=== PATIENT | male | born 1955 | race Caucasian/White ===

== ENCOUNTER → 2016-06-26 | Outpatient (CLI) | payer OTHER ==
[~2016-06-26] MED LIST: APAP500 PO; BISCOLAX10 MG RC; COLACE100 MG PO; COUMADIN 5 MG TA5 M1 PO; COUMADIN7.5 MG PO; ENOXAPARIN40 MG/0.1 SUBQ; FLOMAX0.4 MG PO; NEURONTIN 300300 M1 PO; NORCO 5-325 TA1 EACH PO; PIPERACIL-TAZO4.5 G1 IV; UNICOMPLEX M TA1 TA1 PO; VITAMINC500 PO; ZINC CHELATE50 MG PO
== END ==
LOC: HYPER 06-05 07:10
DX: I87.333 Chronic venous hypertension (idiopathic) with ulcer and inflammation of bilateral lower extremity (principal); L97.322 Non-pressure chronic ulcer of left ankle with fat layer exposed; L97.312 Non-pressure chronic ulcer of right ankle with fat layer exposed; I87.2 Venous insufficiency (chronic) (peripheral); E66.01 Morbid (severe) obesity due to excess calories; F17.210 Nicotine dependence, cigarettes, uncomplicated; Z85.46 Personal history of malignant neoplasm of prostate; Z72.89 Other problems related to lifestyle

== ENCOUNTER → 2016-08-21 | Outpatient (CLI) | payer OTHER | LOC: HYPER 07:06 | DX: I87.333 Chronic venous hypertension (idiopathic) with ulcer and inflammation of bilateral lower extremity (principal); L97.822 Non-pressure chronic ulcer of other part of left lower leg with fat layer exposed; E66.01 Morbid (severe) obesity due to excess calories; L97.811 Non-pressure chronic ulcer of other part of right lower leg limited to breakdown of skin; F17.210 Nicotine dependence, cigarettes, uncomplicated; Z85.46 Personal history of malignant neoplasm of prostate; Z72.89 Other problems related to lifestyle ==

== ENCOUNTER → 2016-09-12 | Outpatient (CLI) | payer OTHER | LOC: HYPER 07:10 | DX: I87.333 Chronic venous hypertension (idiopathic) with ulcer and inflammation of bilateral lower extremity (principal); L97.822 Non-pressure chronic ulcer of other part of left lower leg with fat layer exposed; L97.312 Non-pressure chronic ulcer of right ankle with fat layer exposed; E66.01 Morbid (severe) obesity due to excess calories; F17.210 Nicotine dependence, cigarettes, uncomplicated; Z85.46 Personal history of malignant neoplasm of prostate; Z72.89 Other problems related to lifestyle ==

== ENCOUNTER → 2016-09-27 | Outpatient (CLI) | payer OTHER | LOC: HYPER 07:05 | DX: I87.333 Chronic venous hypertension (idiopathic) with ulcer and inflammation of bilateral lower extremity (principal); L97.822 Non-pressure chronic ulcer of other part of left lower leg with fat layer exposed; L97.812 Non-pressure chronic ulcer of other part of right lower leg with fat layer exposed; R60.9 Edema, unspecified; E66.01 Morbid (severe) obesity due to excess calories; F17.210 Nicotine dependence, cigarettes, uncomplicated; Z85.46 Personal history of malignant neoplasm of prostate; Z72.89 Other problems related to lifestyle ==

== ENCOUNTER → 2016-10-25 | Outpatient (CLI) | payer OTHER | LOC: HYPER 07:04 | DX: I87.333 Chronic venous hypertension (idiopathic) with ulcer and inflammation of bilateral lower extremity (principal); L97.822 Non-pressure chronic ulcer of other part of left lower leg with fat layer exposed; L97.812 Non-pressure chronic ulcer of other part of right lower leg with fat layer exposed; R60.9 Edema, unspecified; E66.01 Morbid (severe) obesity due to excess calories; F17.210 Nicotine dependence, cigarettes, uncomplicated; Z85.46 Personal history of malignant neoplasm of prostate; Z72.89 Other problems related to lifestyle; Z68.41 Body mass index [BMI] 40.0-44.9, adult ==

== ENCOUNTER → 2016-11-22 | Outpatient (CLI) | payer OTHER | LOC: HYPER 07:06 | DX: I87.333 Chronic venous hypertension (idiopathic) with ulcer and inflammation of bilateral lower extremity (principal); L97.822 Non-pressure chronic ulcer of other part of left lower leg with fat layer exposed; L97.812 Non-pressure chronic ulcer of other part of right lower leg with fat layer exposed; R60.9 Edema, unspecified; E66.01 Morbid (severe) obesity due to excess calories; F17.210 Nicotine dependence, cigarettes, uncomplicated; Z85.46 Personal history of malignant neoplasm of prostate; Z72.89 Other problems related to lifestyle ==

== ENCOUNTER → 2016-11-29 | Outpatient (CLI) | payer OTHER | LOC: HYPER 07:15 | DX: I87.333 Chronic venous hypertension (idiopathic) with ulcer and inflammation of bilateral lower extremity (principal); L97.822 Non-pressure chronic ulcer of other part of left lower leg with fat layer exposed; L97.812 Non-pressure chronic ulcer of other part of right lower leg with fat layer exposed; E66.01 Morbid (severe) obesity due to excess calories; Z85.46 Personal history of malignant neoplasm of prostate; F17.210 Nicotine dependence, cigarettes, uncomplicated ==

== ENCOUNTER → 2016-12-06 | Outpatient (CLI) | payer OTHER | LOC: HYPER 07:06 | DX: I87.333 Chronic venous hypertension (idiopathic) with ulcer and inflammation of bilateral lower extremity (principal); L97.812 Non-pressure chronic ulcer of other part of right lower leg with fat layer exposed; L97.822 Non-pressure chronic ulcer of other part of left lower leg with fat layer exposed; E66.01 Morbid (severe) obesity due to excess calories; Z68.41 Body mass index [BMI] 40.0-44.9, adult; Z85.46 Personal history of malignant neoplasm of prostate; F17.210 Nicotine dependence, cigarettes, uncomplicated ==

== ENCOUNTER → 2016-12-13 | Outpatient (CLI) | payer OTHER | LOC: HYPER 07:12 | DX: I87.333 Chronic venous hypertension (idiopathic) with ulcer and inflammation of bilateral lower extremity (principal); L97.822 Non-pressure chronic ulcer of other part of left lower leg with fat layer exposed; L97.812 Non-pressure chronic ulcer of other part of right lower leg with fat layer exposed; E66.01 Morbid (severe) obesity due to excess calories; Z68.41 Body mass index [BMI] 40.0-44.9, adult; Z85.46 Personal history of malignant neoplasm of prostate; F17.210 Nicotine dependence, cigarettes, uncomplicated ==

== ENCOUNTER → 2016-12-20 | Outpatient (CLI) | payer OTHER | LOC: HYPER 07:01 | DX: I87.333 Chronic venous hypertension (idiopathic) with ulcer and inflammation of bilateral lower extremity (principal); L97.822 Non-pressure chronic ulcer of other part of left lower leg with fat layer exposed; L97.812 Non-pressure chronic ulcer of other part of right lower leg with fat layer exposed; E66.01 Morbid (severe) obesity due to excess calories; I87.2 Venous insufficiency (chronic) (peripheral); F17.210 Nicotine dependence, cigarettes, uncomplicated; Z68.41 Body mass index [BMI] 40.0-44.9, adult; Z85.46 Personal history of malignant neoplasm of prostate; Z72.89 Other problems related to lifestyle ==

== ENCOUNTER → 2017-01-10 | Outpatient (CLI) | payer OTHER | LOC: HYPER 07:01 | DX: I87.333 Chronic venous hypertension (idiopathic) with ulcer and inflammation of bilateral lower extremity (principal); L97.812 Non-pressure chronic ulcer of other part of right lower leg with fat layer exposed; L97.822 Non-pressure chronic ulcer of other part of left lower leg with fat layer exposed; R60.9 Edema, unspecified; E66.01 Morbid (severe) obesity due to excess calories; F17.210 Nicotine dependence, cigarettes, uncomplicated; Z85.46 Personal history of malignant neoplasm of prostate; Z72.89 Other problems related to lifestyle ==

== ENCOUNTER → 2017-01-31 | Outpatient (CLI) | payer OTHER | LOC: HYPER 07:01 | DX: I87.333 Chronic venous hypertension (idiopathic) with ulcer and inflammation of bilateral lower extremity (principal); L97.822 Non-pressure chronic ulcer of other part of left lower leg with fat layer exposed; L97.821 Non-pressure chronic ulcer of other part of left lower leg limited to breakdown of skin; L97.812 Non-pressure chronic ulcer of other part of right lower leg with fat layer exposed; E66.01 Morbid (severe) obesity due to excess calories; R60.9 Edema, unspecified; Z85.46 Personal history of malignant neoplasm of prostate; F17.210 Nicotine dependence, cigarettes, uncomplicated; Z72.89 Other problems related to lifestyle ==

== ENCOUNTER → 2017-02-12 | Outpatient (CLI) | payer OTHER | LOC: HYPER 07:11 | DX: I87.333 Chronic venous hypertension (idiopathic) with ulcer and inflammation of bilateral lower extremity (principal); L97.811 Non-pressure chronic ulcer of other part of right lower leg limited to breakdown of skin; L97.812 Non-pressure chronic ulcer of other part of right lower leg with fat layer exposed; E66.01 Morbid (severe) obesity due to excess calories; Z68.41 Body mass index [BMI] 40.0-44.9, adult; Z85.46 Personal history of malignant neoplasm of prostate ==

== ENCOUNTER → 2017-02-26 | Outpatient (CLI) | payer OTHER | LOC: HYPER 07:47 | DX: I87.333 Chronic venous hypertension (idiopathic) with ulcer and inflammation of bilateral lower extremity (principal); L97.812 Non-pressure chronic ulcer of other part of right lower leg with fat layer exposed; L97.822 Non-pressure chronic ulcer of other part of left lower leg with fat layer exposed; E66.01 Morbid (severe) obesity due to excess calories; R60.9 Edema, unspecified; Z85.46 Personal history of malignant neoplasm of prostate; F17.210 Nicotine dependence, cigarettes, uncomplicated; Z72.89 Other problems related to lifestyle ==

== ENCOUNTER → 2017-03-12 | Outpatient (CLI) | payer OTHER | LOC: HYPER 07:04 | DX: I87.333 Chronic venous hypertension (idiopathic) with ulcer and inflammation of bilateral lower extremity (principal); L97.822 Non-pressure chronic ulcer of other part of left lower leg with fat layer exposed; L97.812 Non-pressure chronic ulcer of other part of right lower leg with fat layer exposed; L97.512 Non-pressure chronic ulcer of other part of right foot with fat layer exposed; E66.01 Morbid (severe) obesity due to excess calories; R60.9 Edema, unspecified; F17.210 Nicotine dependence, cigarettes, uncomplicated; Z72.89 Other problems related to lifestyle; Z85.46 Personal history of malignant neoplasm of prostate ==

== ENCOUNTER → 2017-03-26 | Outpatient (CLI) | payer OTHER | LOC: HYPER 07:01 | DX: I87.333 Chronic venous hypertension (idiopathic) with ulcer and inflammation of bilateral lower extremity (principal); L97.822 Non-pressure chronic ulcer of other part of left lower leg with fat layer exposed; L97.812 Non-pressure chronic ulcer of other part of right lower leg with fat layer exposed; E66.01 Morbid (severe) obesity due to excess calories; R60.9 Edema, unspecified; Z85.46 Personal history of malignant neoplasm of prostate; F17.210 Nicotine dependence, cigarettes, uncomplicated ==

== ENCOUNTER → 2017-04-24 | Outpatient (CLI) | payer OTHER | LOC: HYPER 08:00 | DX: I87.333 Chronic venous hypertension (idiopathic) with ulcer and inflammation of bilateral lower extremity (principal); L97.812 Non-pressure chronic ulcer of other part of right lower leg with fat layer exposed; L97.822 Non-pressure chronic ulcer of other part of left lower leg with fat layer exposed; L97.512 Non-pressure chronic ulcer of other part of right foot with fat layer exposed; E66.01 Morbid (severe) obesity due to excess calories; Z68.41 Body mass index [BMI] 40.0-44.9, adult; R60.9 Edema, unspecified; Z85.46 Personal history of malignant neoplasm of prostate; F17.210 Nicotine dependence, cigarettes, uncomplicated; Z72.89 Other problems related to lifestyle ==

== ENCOUNTER → 2017-05-16 | Outpatient (CLI) | payer OTHER | LOC: HYPER 07:58 | DX: I87.333 Chronic venous hypertension (idiopathic) with ulcer and inflammation of bilateral lower extremity (principal); L97.822 Non-pressure chronic ulcer of other part of left lower leg with fat layer exposed; L97.812 Non-pressure chronic ulcer of other part of right lower leg with fat layer exposed; E66.01 Morbid (severe) obesity due to excess calories; Z68.41 Body mass index [BMI] 40.0-44.9, adult; Z85.46 Personal history of malignant neoplasm of prostate; F17.210 Nicotine dependence, cigarettes, uncomplicated; L97.512 Non-pressure chronic ulcer of other part of right foot with fat layer exposed; L97.521 Non-pressure chronic ulcer of other part of left foot limited to breakdown of skin ==

== ENCOUNTER → 2017-05-30 | Outpatient (CLI) | payer OTHER | LOC: HYPER 06:48 | DX: I87.333 Chronic venous hypertension (idiopathic) with ulcer and inflammation of bilateral lower extremity (principal); L97.812 Non-pressure chronic ulcer of other part of right lower leg with fat layer exposed; L97.822 Non-pressure chronic ulcer of other part of left lower leg with fat layer exposed; E66.01 Morbid (severe) obesity due to excess calories; Z68.41 Body mass index [BMI] 40.0-44.9, adult; Z85.46 Personal history of malignant neoplasm of prostate; F17.210 Nicotine dependence, cigarettes, uncomplicated ==

== ENCOUNTER → 2017-06-21 | Outpatient (CLI) | payer OTHER | LOC: HYPER 06:48 | DX: I87.333 Chronic venous hypertension (idiopathic) with ulcer and inflammation of bilateral lower extremity (principal); L97.812 Non-pressure chronic ulcer of other part of right lower leg with fat layer exposed; L97.822 Non-pressure chronic ulcer of other part of left lower leg with fat layer exposed; E66.01 Morbid (severe) obesity due to excess calories; Z68.41 Body mass index [BMI] 40.0-44.9, adult; R60.9 Edema, unspecified; Z85.46 Personal history of malignant neoplasm of prostate; F17.210 Nicotine dependence, cigarettes, uncomplicated; Z72.89 Other problems related to lifestyle ==

== ENCOUNTER → 2017-07-05 | Outpatient (CLI) | payer OTHER | LOC: HYPER 06:33 | DX: I87.333 Chronic venous hypertension (idiopathic) with ulcer and inflammation of bilateral lower extremity (principal); L97.812 Non-pressure chronic ulcer of other part of right lower leg with fat layer exposed; L97.822 Non-pressure chronic ulcer of other part of left lower leg with fat layer exposed; E66.01 Morbid (severe) obesity due to excess calories; L97.511 Non-pressure chronic ulcer of other part of right foot limited to breakdown of skin; F17.210 Nicotine dependence, cigarettes, uncomplicated; Z68.41 Body mass index [BMI] 40.0-44.9, adult; Z72.89 Other problems related to lifestyle; Z85.46 Personal history of malignant neoplasm of prostate ==

== ENCOUNTER → 2017-07-19 | Outpatient (CLI) | payer OTHER | LOC: HYPER 06:47 | DX: I87.331 Chronic venous hypertension (idiopathic) with ulcer and inflammation of right lower extremity (principal); L97.812 Non-pressure chronic ulcer of other part of right lower leg with fat layer exposed; L97.511 Non-pressure chronic ulcer of other part of right foot limited to breakdown of skin; E66.01 Morbid (severe) obesity due to excess calories; F17.210 Nicotine dependence, cigarettes, uncomplicated; Z72.89 Other problems related to lifestyle; Z68.41 Body mass index [BMI] 40.0-44.9, adult; Z85.46 Personal history of malignant neoplasm of prostate ==

== ENCOUNTER → 2017-08-13 | Outpatient (CLI) | payer OTHER | LOC: HYPER 08-08 06:52 | DX: L97.812 Non-pressure chronic ulcer of other part of right lower leg with fat layer exposed (principal); I87.333 Chronic venous hypertension (idiopathic) with ulcer and inflammation of bilateral lower extremity; L97.822 Non-pressure chronic ulcer of other part of left lower leg with fat layer exposed; L84 Corns and callosities; E66.01 Morbid (severe) obesity due to excess calories; F17.210 Nicotine dependence, cigarettes, uncomplicated; Z85.46 Personal history of malignant neoplasm of prostate; Z72.89 Other problems related to lifestyle ==

== ENCOUNTER → 2017-09-03 | Outpatient (CLI) | payer OTHER | LOC: HYPER 07:08 | DX: I87.331 Chronic venous hypertension (idiopathic) with ulcer and inflammation of right lower extremity (principal); L97.812 Non-pressure chronic ulcer of other part of right lower leg with fat layer exposed; L97.822 Non-pressure chronic ulcer of other part of left lower leg with fat layer exposed; L97.512 Non-pressure chronic ulcer of other part of right foot with fat layer exposed; E66.01 Morbid (severe) obesity due to excess calories; L84 Corns and callosities; F17.210 Nicotine dependence, cigarettes, uncomplicated; Z85.46 Personal history of malignant neoplasm of prostate; Z72.89 Other problems related to lifestyle ==

== ENCOUNTER → 2017-09-24 | Outpatient (CLI) | payer OTHER | LOC: HYPER 06:57 | DX: T81.89XD Other complications of procedures, not elsewhere classified, subsequent encounter (principal); I87.332 Chronic venous hypertension (idiopathic) with ulcer and inflammation of left lower extremity; L97.812 Non-pressure chronic ulcer of other part of right lower leg with fat layer exposed; L97.822 Non-pressure chronic ulcer of other part of left lower leg with fat layer exposed; L97.512 Non-pressure chronic ulcer of other part of right foot with fat layer exposed; E66.01 Morbid (severe) obesity due to excess calories; Z68.41 Body mass index [BMI] 40.0-44.9, adult; R60.9 Edema, unspecified; F17.210 Nicotine dependence, cigarettes, uncomplicated; Z85.46 Personal history of malignant neoplasm of prostate; Y83.8 Other surgical procedures as the cause of abnormal reaction of the patient, or of later complication, without mention of misadventure at the time of the procedure ==

== ENCOUNTER → 2017-10-08 | Outpatient (CLI) | payer OTHER | LOC: HYPER 06:46 | DX: T81.89XD Other complications of procedures, not elsewhere classified, subsequent encounter (principal); I87.333 Chronic venous hypertension (idiopathic) with ulcer and inflammation of bilateral lower extremity; L97.822 Non-pressure chronic ulcer of other part of left lower leg with fat layer exposed; L97.812 Non-pressure chronic ulcer of other part of right lower leg with fat layer exposed; L97.512 Non-pressure chronic ulcer of other part of right foot with fat layer exposed; E66.01 Morbid (severe) obesity due to excess calories; R60.9 Edema, unspecified; F17.210 Nicotine dependence, cigarettes, uncomplicated; Z85.46 Personal history of malignant neoplasm of prostate; Z68.41 Body mass index [BMI] 40.0-44.9, adult; Y83.8 Other surgical procedures as the cause of abnormal reaction of the patient, or of later complication, without mention of misadventure at the time of the procedure ==

== ENCOUNTER → 2017-10-31 | Outpatient (CLI) | payer OTHER | LOC: HYPER 06:40 | DX: T81.89XA Other complications of procedures, not elsewhere classified, initial encounter (principal); I87.333 Chronic venous hypertension (idiopathic) with ulcer and inflammation of bilateral lower extremity; L97.212 Non-pressure chronic ulcer of right calf with fat layer exposed; L97.822 Non-pressure chronic ulcer of other part of left lower leg with fat layer exposed; L97.512 Non-pressure chronic ulcer of other part of right foot with fat layer exposed; E66.01 Morbid (severe) obesity due to excess calories; F17.210 Nicotine dependence, cigarettes, uncomplicated; Z68.41 Body mass index [BMI] 40.0-44.9, adult; Z85.46 Personal history of malignant neoplasm of prostate; Y92.89 Other specified places as the place of occurrence of the external cause; Y83.8 Other surgical procedures as the cause of abnormal reaction of the patient, or of later complication, without mention of misadventure at the time of the procedure ==

== ENCOUNTER → 2017-11-21 | Outpatient (CLI) | payer OTHER | LOC: HYPER 07:05 | DX: T81.89XD Other complications of procedures, not elsewhere classified, subsequent encounter (principal); I87.333 Chronic venous hypertension (idiopathic) with ulcer and inflammation of bilateral lower extremity; L97.812 Non-pressure chronic ulcer of other part of right lower leg with fat layer exposed; L97.822 Non-pressure chronic ulcer of other part of left lower leg with fat layer exposed; L97.511 Non-pressure chronic ulcer of other part of right foot limited to breakdown of skin; E66.01 Morbid (severe) obesity due to excess calories; F17.210 Nicotine dependence, cigarettes, uncomplicated; Z85.46 Personal history of malignant neoplasm of prostate; Z68.41 Body mass index [BMI] 40.0-44.9, adult; Y83.8 Other surgical procedures as the cause of abnormal reaction of the patient, or of later complication, without mention of misadventure at the time of the procedure ==

== ENCOUNTER → 2017-12-12 | Outpatient (CLI) | payer OTHER | LOC: HYPER 06:53 | DX: T81.89XD Other complications of procedures, not elsewhere classified, subsequent encounter (principal); I87.333 Chronic venous hypertension (idiopathic) with ulcer and inflammation of bilateral lower extremity; L97.822 Non-pressure chronic ulcer of other part of left lower leg with fat layer exposed; L97.221 Non-pressure chronic ulcer of left calf limited to breakdown of skin; E66.01 Morbid (severe) obesity due to excess calories; L97.512 Non-pressure chronic ulcer of other part of right foot with fat layer exposed; L84 Corns and callosities; F17.210 Nicotine dependence, cigarettes, uncomplicated; Z68.41 Body mass index [BMI] 40.0-44.9, adult; Z85.46 Personal history of malignant neoplasm of prostate; Y83.8 Other surgical procedures as the cause of abnormal reaction of the patient, or of later complication, without mention of misadventure at the time of the procedure ==

== ENCOUNTER → 2018-01-02 | Outpatient (CLI) | payer OTHER | LOC: HYPER 06:38 | DX: T81.89XD Other complications of procedures, not elsewhere classified, subsequent encounter (principal); I87.332 Chronic venous hypertension (idiopathic) with ulcer and inflammation of left lower extremity; L97.822 Non-pressure chronic ulcer of other part of left lower leg with fat layer exposed; I87.331 Chronic venous hypertension (idiopathic) with ulcer and inflammation of right lower extremity; L97.812 Non-pressure chronic ulcer of other part of right lower leg with fat layer exposed; L97.512 Non-pressure chronic ulcer of other part of right foot with fat layer exposed; E66.01 Morbid (severe) obesity due to excess calories; I87.2 Venous insufficiency (chronic) (peripheral); F17.210 Nicotine dependence, cigarettes, uncomplicated; Z68.41 Body mass index [BMI] 40.0-44.9, adult; Z85.46 Personal history of malignant neoplasm of prostate; Y83.8 Other surgical procedures as the cause of abnormal reaction of the patient, or of later complication, without mention of misadventure at the time of the procedure ==

== ENCOUNTER → 2018-04-22 | Outpatient (CLI) | payer OTHER | LOC: HYPER 06:54 | DX: T81.89XD Other complications of procedures, not elsewhere classified, subsequent encounter (principal); I87.333 Chronic venous hypertension (idiopathic) with ulcer and inflammation of bilateral lower extremity; L97.812 Non-pressure chronic ulcer of other part of right lower leg with fat layer exposed; L97.822 Non-pressure chronic ulcer of other part of left lower leg with fat layer exposed; L97.512 Non-pressure chronic ulcer of other part of right foot with fat layer exposed; L97.311 Non-pressure chronic ulcer of right ankle limited to breakdown of skin; E66.01 Morbid (severe) obesity due to excess calories; F17.210 Nicotine dependence, cigarettes, uncomplicated; Z85.46 Personal history of malignant neoplasm of prostate; Z68.41 Body mass index [BMI] 40.0-44.9, adult; Y83.8 Other surgical procedures as the cause of abnormal reaction of the patient, or of later complication, without mention of misadventure at the time of the procedure ==

== ENCOUNTER → 2018-06-25 | Outpatient (CLI) | payer OTHER | LOC: HYPER 05-14 06:39 | DX: T81.89XD Other complications of procedures, not elsewhere classified, subsequent encounter (principal); I87.333 Chronic venous hypertension (idiopathic) with ulcer and inflammation of bilateral lower extremity; L97.812 Non-pressure chronic ulcer of other part of right lower leg with fat layer exposed; L97.822 Non-pressure chronic ulcer of other part of left lower leg with fat layer exposed; L97.512 Non-pressure chronic ulcer of other part of right foot with fat layer exposed; L97.311 Non-pressure chronic ulcer of right ankle limited to breakdown of skin; L84 Corns and callosities; E66.01 Morbid (severe) obesity due to excess calories; F17.210 Nicotine dependence, cigarettes, uncomplicated; Z85.46 Personal history of malignant neoplasm of prostate; Z68.41 Body mass index [BMI] 40.0-44.9, adult; Y83.8 Other surgical procedures as the cause of abnormal reaction of the patient, or of later complication, without mention of misadventure at the time of the procedure ==

== ENCOUNTER → 2018-08-08 | Outpatient (CLI) | payer OTHER | LOC: HYPER 07-23 06:57 | DX: T81.89XD Other complications of procedures, not elsewhere classified, subsequent encounter (principal); I87.333 Chronic venous hypertension (idiopathic) with ulcer and inflammation of bilateral lower extremity; L97.812 Non-pressure chronic ulcer of other part of right lower leg with fat layer exposed; L97.822 Non-pressure chronic ulcer of other part of left lower leg with fat layer exposed; L97.311 Non-pressure chronic ulcer of right ankle limited to breakdown of skin; L97.512 Non-pressure chronic ulcer of other part of right foot with fat layer exposed; E66.01 Morbid (severe) obesity due to excess calories; F17.210 Nicotine dependence, cigarettes, uncomplicated; Z85.46 Personal history of malignant neoplasm of prostate; Z68.41 Body mass index [BMI] 40.0-44.9, adult; Y83.8 Other surgical procedures as the cause of abnormal reaction of the patient, or of later complication, without mention of misadventure at the time of the procedure ==

== ENCOUNTER 2018-08-20 16:01 | Inpatient (IN) | payer OTHER ==
[~2018-08-20] VITALS: Ht 190.5 cm; Wt 156.5 kg
[2018-08-20 16:00] VITALS: BP 111/69
[2018-08-20 20:00] VITALS: BP 121/76
[2018-08-20] MEDS ORDERED: COUMADIN 3 MG TA3 MG PO (20:13)
[2018-08-20] MEDS ORDERED: LIPITOR 20 MG T20 M1 PO (20:18)
[2018-08-20] MEDS ORDERED: COUMADIN 5 MG TA5 M1 PO (21:41)
[2018-08-20] MEDS ORDERED: COUMADIN 1MG TAB1 M1 PO (21:42)
[2018-08-20 22:56] LABS: APTT 47.2 Seconds (24.5-32.8); INR 3.8; PROTIME 39.3 Seconds (9.3-11.4)
[2018-08-20 23:44] LABS: HEMATOCRIT 37.2 % (42.0-52.0); HEMOGLOBIN 12.4 gm/dL (14.0-18.0); MCH 28.7 pg (26.0-34.0); MCHC 33.4 g/dL (28.0-37.0); MCV 85.9 fL (80.0-100.0); RBC 4.33 mil/uL (4.50-6.00); RDW 15.8 % (10.5-14.5); WBC 8.6 thou/uL (4.0-11.0)
[2018-08-20 23:56] LABS: ALBUMIN 2.8 g/dL (3.4-5.0); CALCIUM 8.9 mg/dL (8.5-10.1); CREATININE 1.2 mg/dL (0.7-1.3); MAGNESIUM 2.1 mg/dL (1.8-2.4); POTASSIUM 4.1 mmol/L (3.5-5.1); TOTAL BILIRUBIN 0.5 mg/dL (<0.1-1.0); TOTAL PROTEIN 7.5 g/dL (6.4-8.2)
--- NOTE | 2018-08-21 03:54 | NUR ---
admission note: orders received, medications started, wound pictures taken and redressed. iv site started in left forearm. denies pain. he stated that he was supossd to be admitted last week and decided to arrive 08/20/18 for his convenience. careplan iniatated and orders carried out. he prefers to keep his t shirt on and dose not want a pt gown.
[2018-08-21 05:20] VITALS: BP 87/48
[2018-08-21 07:55] VITALS: BP 90/70
--- NOTE | 2018-08-21 13:15 | NUR ---
ASSESSMENT-PT LIVES IN A HOUSE ALONE. PT DRIVES. HE DOES HIS OWN COOKING, CLEANING AND LAUNDRY. PT HAS A RAMP TO ENTER THE HOME AND NO STEPS INSIDE. PT SAYS HE IS ABLE TO WRAP HIS OWN LEGS BUT IT IS HARD. PT HAS BEEN TO REHAB IN [place] AND DOES NOT WANT TO RETURN THERE. HE WOULD BE OPEN TO SERVICES IF SUGGESTED. HE HAS A SISTER IN THE AREA. FOLLOWING TO ASSIST WITH DC PLANNING.
[2018-08-21 13:37] LABS: URINE BILIRUBIN NEGATIVE (Negative); URINE BLOOD NEGATIVE (Negative); URINE CLARITY CLEAR; URINE COLOR YELLOW; URINE GLUCOSE-RANDOM* NEGATIVE (Negative); URINE KETONES NEGATIVE (Negative); URINE LEUKOCYTES-REFLEX NEGATIVE (Negative); URINE NITRITE-REFLEX NEGATIVE (Negative); URINE PROTEIN (DIPSTICK) NEGATIVE (Negative); URINE SPECIFIC GRAVITY 1.025 (1.005-1.035); URINE UROBILINOGEN 0.2 E.U./dl (0.2-1.0)
--- NOTE | 2018-08-21 13:38 | NUR ---
WOUND CONSULT: PT. WAS SEEN TODAY BY DR. STACY AND MYSELF. PT. WAS ADMITTED YESTERDAY FROM THE WOUND CLINIC BY DR. STACY FOR FUTHER WOUND TREATMENT AND MANAGEMENT. PT. HAS CHRONIC VENOUS STATIS ULCERS TO HIS BILATERAL LOWER EXTREMITYS. PT. IS HAVING LARGE AMOUNTS OF SEROUSANGIOUS DRAIANGE AT THIS TIME. RECOMMENDATIONS: WOUND CARE TO BILATERAL LOWER EXTREMITYS: GENTLY CLEANSE WITH WOUND CLEANSER OR NORMAL SALINE, APPLY SILVADENE/MORPHINE COMPOUND TO WOUND BED, COVER WITH XEROFORM, ABD, KERLIX, SECURE WITH TAPE, COMPLETE CARES BID. PT. AND STAFF NURSE WERE INSTRUCTED ON PLAN OF CARE.
--- NOTE | 2018-08-21 14:33 | NUR ---
Assess due to RD consult received for pt with bilateral lower extremity venous stasis ulcers, chronic. Followed by wound care team in wound clinic. Pt not in room at time of visit. BMI 48.1=extreme class III obesity. On heart healthy diet. Will start violet bid and follow up further on protein education needs. Low nutrition risk
[2018-08-21 18:33] VITALS: BP 110/67
[2018-08-21 19:32] VITALS: BP 111/70
[2018-08-22 01:44] LABS: HEMATOCRIT 38.9 % (42.0-52.0); HEMOGLOBIN 12.7 gm/dL (14.0-18.0); MCH 28.4 pg (26.0-34.0); MCHC 32.7 g/dL (28.0-37.0); MCV 86.7 fL (80.0-100.0); RBC 4.49 mil/uL (4.50-6.00); RDW 15.6 % (10.5-14.5); WBC 5.3 thou/uL (4.0-11.0)
[2018-08-22 01:51] LABS: INR 3.7; PROTIME 38.8 Seconds (9.3-11.4)
[2018-08-22 04:15] VITALS: BP 111/66
--- NOTE | 2018-08-22 06:40 | NUR ---
ASSUMED CARE AT 1900, ASSESSMENT COMPLETED. PT DENIES PAIN, EXCEPT SLIGHT DISCOMFORT FROM TIGHTNESS OF LEG WRAPS. DENIES NAUSEA OR SOB. IV ABX GIVEN OVERNIGHT. SLEEPING WELL, DID NOT CALL FOR ANYTHING OVERNIGHT. URINATING WELL. NO OTHER CONCERNS, WILL CONTINUE TO MONITOR.
[2018-08-22 07:55] VITALS: BP 124/73
--- NOTE | 2018-08-22 10:57 | NUR ---
REPORT GIVEN TO [facility] NURSE PATIENT TO MOVE TO ROOM 227. SEN[facility] TO DO TX TO NAVJOT PALMER AND TRACEE CRUZ.
--- NOTE | 2018-08-22 11:13 | NUR ---
PATIENT TRANSFERRED TO [facility] ROOM 227 AT THIS TIME.
[2018-08-22 12:29] VITALS: BP 110/72
--- NOTE | 2018-08-22 13:32 | NUR ---
PATIENT TRANSFERRED FROM 426 TO SICU 227 AT 1115, PATIENT MADE COMFORTABL IN ROOM, ORIENTED TO STAFF AND ROOM, WOUND CARE SUPPLIES TRANSFERRED WITH PATIENT, PERSONAL BELONGINGS AND CALL LIGHT IN REACH, WILL CONTINUE TO MONITOR
--- NOTE | 2018-08-23 06:26 | NUR ---
PATIENT ALERT AND ORIENTED X4. DENIES PAIN. UP TO BATHROOM. DRESSING ON NAVJOT LOWER EXT INTACT. ANXIOUS TO GO HOME. SLEPT LITTLE THIS SHIFT.
--- NOTE | 2018-08-23 07:39 | NUR ---
HUNG AM ANTIBIOTIC WHEN MACHINE WENT STARTING BEEPING. WENT IN TO CHECK ON PATIENT AND FOUND THE IV SITE RED, HARD, WARM AND TENDER. REMOVED IV. CALLED DR Gold ARREDONDO TO INFORM HIM OF SITUATION. TOLD HIM OF PATIENT'S REFUSAL TO HAVE ANOTHER IV INSERTED. SAID HE WOULD TAKE CARE OF THINGS.
[2018-08-23 09:30] VITALS: BP 125/82
--- NOTE | 2018-08-23 10:40 | NUR ---
ASSUMED PT CARE AT 0700. ASSESSMENT COMPLETED AND IS CHARTED. VSS. PT LEGS WRAPPED, CDI. REPORTS LITTLE PAIN, RATED 2/10. PT IS DRESSED AND READY TO LEAVE. NO ORDERS FOR DISMISSAL YET. INSTRUCTED PT WE WOULD DISMISS HIM SOON ORDERS ARE OBTAINED. NO IV ACCESS IT WAS LOST IN THE NIGHT. PHYSICIANS ARE AWARE. WILL CONTINUE WITH CURRENT CARE.
[2018-08-23 11:46] VITALS: BP 125/82
--- NOTE | 2018-08-23 11:48 | NUR ---
JESSY reviewed chart and spoke with nursing and attending physician. Pt was transferred to [facility] from and is progressing towards goals for discharge. Pt may be ready for discharge later today, pending ID clearance. Recommendation made for pt to have HH services. JESSY met with pt at bedside to discuss discharge plan. Pt is agreeable with HH services. JESSY confirmed pt's home address and phone number. Pt's PCP is Dr. Owen Lal in [place]. Plan is for pt to follow up with wound care as an outpatient. Pt drove himself to the hospital. JESSY provided options for HH agencies. No preference voiced. JESS[facility] contacted [facility] to see if they go to [place]. JESSY is following to assist as needed with discharge planning.
--- NOTE | 2018-08-23 13:22 | NUR ---
WOUND FOLLOW UP: PT. WAS SEEN TODAY BY DR. STACY AND MYSELF. PT. WILL DISCHARGE TODAY AND COME BACK FOR DEBRIDEMENT. RECOMMENDATIONS: CONTINUE WITH CURRENT PLAN OF CARE. PT. AND STAFF NURSE WERE INSTRUCTED ON PLAN OF CARE.
--- NOTE | 2018-08-23 13:48 | NUR ---
PT DOING WELL THIS SHIFT. UP WALKING AROUND. NO C/O PAIN. AWAITING ID CLEARANCE FOR HOME. WILL CONTINUE TO MONITOR.
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
--- NOTE | 2018-08-23 16:01 | NUR ---
CHANGED PT DRESSINGS TO LOWER LEGS. CLEANSED WOUNDS WITH NS. APPLIED SILVEDENE ORDERED. COVERED WITH XEROFORM, KERLIX, ABD, AND MENDY WRAPS. PT TOLERATED WELL. DR ARREDONDO AT BEDSIDE TO ASSESS.
[2018-08-23] MEDS ORDERED: CIPRO250 M1 PO (17:17)
[2018-08-23 17:29] VITALS: BP 125/82
== END 2018-08-23 18:23 | disposition home health service (06) | DRG 871 ==
LOC: 4E 16:01 → ENTRNSPT 08-22 11:04 → SICU 08-22 11:20 → EDTRNSPTSTS 08-22 11:40 → CMPTRNSPT 08-23 13:21 → ENTRNSPT 08-23 17:54 → SICU 08-23 18:23
PROVIDERS: Nurse Practitioner Acute Care; ADMIT Internal Medicine
DX: A41.9 Sepsis, unspecified organism (principal); E43 Unspecified severe protein-calorie malnutrition; D68.59 Other primary thrombophilia; L97.919 Non-pressure chronic ulcer of unspecified part of right lower leg with unspecified severity; Z68.41 Body mass index [BMI] 40.0-44.9, adult; L08.9 Local infection of the skin and subcutaneous tissue, unspecified; I87.2 Venous insufficiency (chronic) (peripheral); E87.6 Hypokalemia; N40.0 Benign prostatic hyperplasia without lower urinary tract symptoms; G89.4 Chronic pain syndrome; G62.9 Polyneuropathy, unspecified; I77.1 Stricture of artery; E78.5 Hyperlipidemia, unspecified; Z60.2 Problems related to living alone; E66.01 Morbid (severe) obesity due to excess calories; Z85.46 Personal history of malignant neoplasm of prostate; Z86.718 Personal history of other venous thrombosis and embolism; Z86.711 Personal history of pulmonary embolism; Z87.891 Personal history of nicotine dependence; Z80.9 Family history of malignant neoplasm, unspecified; Z79.01 Long term (current) use of anticoagulants; Z80.7 Family history of other malignant neoplasms of lymphoid, hematopoietic and related tissues; Z79.899 Other long term (current) drug therapy
CPT/HCPCS: 10783; 15002

== ENCOUNTER 2018-09-03 12:31 | Inpatient (IN) | payer OTHER ==
[~2018-09-03] VITALS: Ht 190.5 cm; Wt 82.3 kg
[~2018-09-03 12:31] MED LIST changes: +CIPRO250 M1 PO; +COUMADIN 1MG TAB1 M1 PO; +COUMADIN 3 MG TA3 MG PO; +LIPITOR 20 MG T20 M1 PO
--- NOTE | 2018-09-03 13:53 | NUR ---
PT ORIENTED TO ROOM AND UNIT. BED LOW AND LOCKED, SIDE RAILS UPX 3, CALL LIGHT IN REACH. WILL CONTINUE TO ASSESS.
[2018-09-03 14:02] LABS: ABSOLUTE NEUTROPHILS 6.2 thou/uL (1.4-8.2); BASOPHILS 0.7 % (0.0-2.0); EOSINOPHILS 10.7 % (0.0-3.0); HEMATOCRIT 37.9 % (42.0-52.0); HEMOGLOBIN 12.8 gm/dL (14.0-18.0); LYMPHOCYTES 13.6 % (24.0-44.0); MCH 28.8 pg (26.0-34.0); MCHC 33.8 g/dL (28.0-37.0); MCV 85.2 fL (80.0-100.0); MONOCYTES 11.2 % (1.0-8.0); PLATELET COUNT 224 thou/uL (150-400); POLYS 63.8 % (36.0-66.0); RBC 4.45 mil/uL (4.50-6.00); RDW 16.3 % (10.5-14.5); WBC 9.7 thou/uL (4.0-11.0)
[2018-09-03 14:13] LABS: CALCIUM 8.9 mg/dL (8.5-10.1); POTASSIUM 3.8 mmol/L (3.5-5.1)
[2018-09-03 14:16] LABS: APTT 26.1 Seconds (24.5-32.8); FIBRINOGEN 437.9 mg/dL (210-360); PROTIME 10.8 Seconds (9.3-11.4)
--- NOTE | 2018-09-03 15:10 | NUR ---
TALK TO JAN BAR MACHINE OPERATOR PRODUCTION AND PT IS OK TO NOT HAVE SCDS DUE TO BILAT LOWER EXTEMITY WOUNDS.
[2018-09-03 15:35] VITALS: BP 125/70
[2018-09-03 16:00] VITALS: BP 125/64
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
[2018-09-03 19:45] VITALS: BP 120/73
[2018-09-04] VITALS (13 sets, daily range): BP systolic 105–144; BP diastolic 50–85
[2018-09-04 04:02] LABS: CALCIUM 8.3 mg/dL (8.5-10.1); CREATININE 0.9 mg/dL (0.7-1.3); MAGNESIUM 1.8 mg/dL (1.8-2.4); POTASSIUM 3.9 mmol/L (3.5-5.1)
[2018-09-04 04:17] LABS: ABSOLUTE NEUTROPHILS 4.1 thou/uL (1.4-8.2); BASOPHILS 0.7 % (0.0-2.0); EOSINOPHILS 12.5 % (0.0-3.0); HEMATOCRIT 33.9 % (42.0-52.0); HEMOGLOBIN 11.5 gm/dL (14.0-18.0); LYMPHOCYTES 16.7 % (24.0-44.0); MCH 29.1 pg (26.0-34.0); MCHC 33.8 g/dL (28.0-37.0); MONOCYTES 9.8 % (1.0-8.0); PLATELET COUNT 188 thou/uL (150-400); POLYS 60.3 % (36.0-66.0); RBC 3.95 mil/uL (4.50-6.00); RDW 16.2 % (10.5-14.5); WBC 6.8 thou/uL (4.0-11.0)
--- NOTE | 2018-09-04 05:29 | NUR ---
ASSUMED PT CARE AT 1900 WITH NO SIGN OF DISTRESS NOTED. PT IS ALERT AND ORIENTED. PT IS LAYING IN BED COMFORTABLY WITH NO COMPLIANTS. PT IS EDUCATED ON BEEN NPO AFTER MN FOR A DEBRIDMENT OF RIGHT LEG. SCHEDULED MEDS ADMINISTERED TO PT. NO PAIN VERBALIZED AT THIS TIME. PT IS NPO AFTER MN, VITAL SIGNS STABLE. PT DENIES ANY FURTHER NEEDS AT THIS TIME.
--- NOTE | 2018-09-04 09:43 | NUR ---
DCP FAXED CLINICAL UPDATE TO [facility] SPOKE WITH ANTON IN ADM. SHE RECEIVED UPDATE AND THEY WILL RESUME HH CARE AT [place] TO FOLLOW.
--- NOTE | 2018-09-04 09:48 | O ---
[facility] [place] [address] OPERATIVE REPORT Name: MELLISA ARGUETA Room #: 218-P ADM IN M.R.#: [id number] Admission: 09/03/18 ������������������ Attend Phys: Yoni Medley MD Discharge: ������������������ Date of : 53 Report #: [id number] THIS REPORT FOR: //name// CC: Owen Leary MD DATE OF SERVICE: 09/04/2018 SURGEON: Dom Vega M.D. LINE ASSEMBLER: None. PREOPERATIVE DIAGNOSIS: Near-circumferential right lower extremity venous stasis wound. POSTOPERATIVE DIAGNOSIS: Near-circumferential right lower extremity venous stasis wound. PROCEDURES: 1. Ultrasonic debridement of near-circumferential right lower extremity venous stasis wound (noncontiguous 19 cm long x 20 cm around measurements) covering approximately 200 cm2. 2. Application of skin substitute (Interfyl x 6 mL and PriMatrix 8 x 8 cm times 2 and 6 x 6 cm times 2) covering 200 cm2. ANESTHESIA: General endotracheal anesthesia and local anesthetic. ESTIMATED BLOOD LOSS: 50 mL. SPECIMEN: None. COMPLICATIONS: None appreciated. INDICATIONS FOR PROCEDURE: This is a 63-year-old male patient with a history of chronic venous stasis wounds, most prominent in his right lower extremity (the left side has essentially healed). The patient has noticed enlargement of his right lower extremity wounds with increased pain. He has undergone bedside debridement in the past and was admitted for further wound care. He was initially admitted 2 weeks ago; however, he had continued to take his Coumadin and had extremely elevated INR of 3.7. He was dismissed home and held his Coumadin last week in anticipation for this week's operation. He presents now for mechanical debridement of his wounds with application of a skin substitute [address] [address] OPERATIVE REPORT Name: MELLISA ARGUETA [place] Room #: 218-P [facility] IN ..#: [id number] Admission: 09/03/18 ������������������ Attend Phys: Yoni Medley MD Discharge: ������������������ Date of : 53 Report #: [id number] to boost wound healing. OPERATIVE FINDINGS: There were several wounds around the right lower extremity that were noncontiguous and ultimately made up a 200 square cm of wound that required both ultrasonic debridement and application of the skin substitute. After mechanical debridement, the remaining tissue was healthy and viable. There was good cavitation of the senescent cells with decrease in the bacterial load. At the conclusion of the operation, the sponge, needle, and instrument counts were correct. There was good coverage of all wounds with both the Interfyl and PriMatrix skin substitutes. DESCRIPTION OF PROCEDURE IN DETAIL: After the risks, benefits and expectations of the operation were discussed in detail with the patient, informed consent was obtained. The patient was identified in the preoperative holding area. He has been receiving scheduled IV antibiotics. He was taken to the operating room and he was placed in the supine position. He was given IV sedation and he was intubated without incident. His right lower extremity was then prepped and draped in the standard sterile fashion. A time-out was performed to identify the correct patient and procedure. Local anesthetic was infiltrated into the skin and subcutaneous tissue in all areas of involved wound. The right lower extremity was suspended while I performed the mechanical debridement with the Misonix device. While using the device on all areas after obtaining measurements, the fibrinous exudate that covered the entire surface of each wound was effectively removed. There was good cavitation of the nonviable cells as well as bacterial clearance. Bleeding points were made hemostatic with electrocautery. After ensuring hemostasis, Interfyl was applied to the surface of each wound. The Interfyl had been prepared on the back table and was topically applied, then digitally spread over the wound surface area. PriMatrix was then applied to the wounds to cover the entire surface area. The PriMatrix was cut to accommodate for the wound edges. The PriMatrix was affixed to the tissue with the skin stapler in multiple areas. The patient tolerated the procedure well. He was awakened, extubated and taken to recovery room in stable condition with no apparent intraoperative complications. ��������������������������������������������� <ELECTRONICALLY SIGNED> ���������������������������������������� By: Dom Vega MD, FACS ��������������������������������������������� 09/04/18 0948 [id number] Dom Vega MD, FACS /nt
--- NOTE | 2018-09-04 13:10 | NUR ---
Nutrition: assess d/t consult for wound. Pt admitted with cellulitis on right leg. Current wt of 181 lbs incorrect; closer to 350 lbs. Pt ate 100% of lunch today. Is followed by wound nurse at home. Will order Abdoul BID. Otherwise, consider low nutrition risk.
--- NOTE | 2018-09-04 15:48 | NUR ---
WOUND CONSULT: PT. WAS SEEN TODAY BY DR. RG AND MYSELF. PT. IS WELL KNOWN TO THE WOUND CARE TEAM. PT. WAS TAKEN TO THE OR TODAY AND HAD MYSONIC DEBRIDEMENT OF HIS RIGHT LE WITH SKIN SUB PLACEMENT. WOUND VAC WAS APPLIED TODAY BY WOUND CARE TEAM TO RIGHT LE. PT. TOLERATED WELL. RECOMMENDATIONS: CONTINUE WITH WOUND VAC. PT. AND STAFF NURSE WERE INSTRUCTED ON PLAN OF CARE.
--- NOTE | 2018-09-04 22:19 | NUR ---
ASSUMED CARE OF PATIENT ABOUT 1000. PATIENT ALERT AND ORIENTED AND RETURNED FROM SURGERY ONLY REQUESTING ONE NORCO AND IV MORPHINE UPON APPLICATION OF WOUND VAC BY WOUND CARE TEAM. PATIENT IS PLEASANT.
--- NOTE | 2018-09-04 22:49 | HC ---
[facility] [place] [address] CONSULTATION Name: MELLISA ARGUETA Room #: 218-P [facility] IN M.R.#: [id number] Admission: 09/03/18 ������������������ Attend Phys: Yoni Medley MD Discharge: ������������������ Date of : 53 Report #: [id number] THIS REPORT FOR: //name// CC: Owen Medley DATE OF SERVICE: 09/03/2018 REASON FOR CONSULTATION: I was asked to evaluate concerning lower extremity venous stasis wound infection. HISTORY OF PRESENT ILLNESS: The patient is a 63-year-old with longstanding venous stasis disease, obesity, who has been treated in the hospital 2 weeks ago with plans for surgical debridement and skin grafting. Cultures had revealed Providencia and Bacteroides. He was discharged on ciprofloxacin, but did not complete his course of treatment. He has been off antibiotics now about 5 days. No increased drainage or pain. Presents now back for his debridement and skin grafting. He is now off his anticoagulation with adequate coagulation profile. No fever, chills, or sweats. ALLERGIES: None known. MEDICATIONS: As noted on his MAR. PAST MEDICAL HISTORY, FAMILY HISTORY, SOCIAL HISTORY: Unchanged from his previous consultation of 08/22/2018. REVIEW OF SYSTEMS: A 10-point review was negative other than what is described above. PHYSICAL EXAMINATION: VITAL SIGNS: Afebrile and hemodynamically stable. GENERAL: He is alert and cooperative and pleasant, in no acute distress. HEENT: Eyes without scleral icterus. Mouth without mucositis. NECK: Supple. LUNGS: Clear. CARDIOVASCULAR: Regular without murmur, gallop, or rub. ABDOMEN: Obese, soft, nontender, no hepatosplenomegaly or mass. Groin without any adenopathy or masses. EXTREMITIES: Right lower extremity had venous stasis ulcers circumferentially involving the lower leg below the knee. There was no purulent drainage. There was no associated cellulitis. He had trace edema. Left lower extremity had trace edema with venous stasis dermatitis changes. No ulcerations of significance. Sensation in his feet normal. Capillary refill good. Strength normal. NEUROLOGIC: Cranial nerves intact. Mood normal. [facility] [address] [place] [address] CONSULTATION Name: ARGUETAMELLISA Room #: 218-P [facility] IN .R.#: [id number] Admission: 09/03/18 ������������������ Attend Phys: Yoni Medley MD Discharge: ������������������ Date of : 53 Report #: [id number] LABORATORY STUDIES: Sodium 142, potassium 3.8, bicarbonate 27, creatinine 1. Hemoglobin 12.8, white count 9.7, platelet count 224,000. From 08/21/2018, culture of the wound bed revealed Providencia sensitive to second generation cephalosporins, quinolones, meropenem and Zosyn as well as Bacteroides fragilis. IMPRESSION: Chronic venous stasis wounds with secondary infection, now improved, following antibiotic therapy. He is now set up for surgical debridement and skin grafting. In review of the plan of surgical consultation looks like he is going to try a skin substitute. We will support his surgical intervention with ceftriaxone and metronidazole. Continue local wound care preop and leg elevation. ��������������������������������������������� <ELECTRONICALLY SIGNED> ���������������������������������������� By: Amando Thomas MD ��������������������������������������������� 09/04/18 2719 [id number] Amando Thomas MD /nt
[2018-09-05 03:59] VITALS: BP 114/59
--- NOTE | 2018-09-05 05:55 | NUR ---
ASSUMED PT CARE AT 1900 WITH NO SIGN OF DISTRESS NOTED IN PT. PT IS ALERT AND ORIENTED. PT IS STABLE AFTER DEBRIDMENT AND WOUND VAC PLACEMENT. PT COMPLIANING OF PAIN TO RIGHT LOWER EXTREMITY. PAIN MED ADMINISTERED. SCHEDULED MEDS ADMINISTERED TO PT. NO SIGN OF DISTRESS NOTD IN PT, PT DENIES ANY FURTHER NEEDS AT THIS TIME.
[2018-09-05 07:20] VITALS: BP 115/70
[2018-09-05 11:40] VITALS: BP 93/52
--- NOTE | 2018-09-05 14:03 | NUR ---
WOUND FOLLOW UP: PT. WAS SEEN TODAY BY DR. RG AND MYSELF. PT. WOUND VAC IS C/D/I AT THIS TIME. RECOMMENDATIONS: CONTINUE WITH CURRENT PLAN OF CARE. PT. AND STAFF NURSE WERE INSTRUCTED ON PLAN OF CARE.
[2018-09-05 15:08] VITALS: BP 104/61
--- NOTE | 2018-09-05 17:19 | NUR ---
ON-GOING ASSESSMENT: CM REVIEWED CHART. PT HAS WOUND VAC IN PLACE. CM DISCUSSED WITH WOUND CARE AND SHE IS WORKING ON ORDERING A HOME WOUND VAC FOR PATIENT. CM DISCUSSED WITH WOUND CARE AND ATTENDING AND PLANS ARE TO DISCHARGE POSSIBLY EARLY NEXT WEEK WITH HH. CM WILL CONTINUE TO FOLLOW.
[2018-09-05 19:46] VITALS: BP 155/88
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
[2018-09-06 00:37] VITALS: BP 116/68
[2018-09-06 05:21] VITALS: BP 99/62
[2018-09-06 05:50] LABS: INR 1.1; PROTIME 11.4 Seconds (9.3-11.4)
--- NOTE | 2018-09-06 07:27 | NUR ---
ASSUMED OT CARE AT 1900. VSS. PT A&0X4. ASSESSMENTS AND MEDS GIVEN ARE DOCUMENTED. EXPIRATORY WHEEZE NOTED ON RIGHT UPPER LUNG, PT SLEPT WELL ALL NIGHT, NO COMPLAINTS OF DISTRESS, MORPHINE GIVEN FOR PAIN AND SLEEP. BLE DRESSINGS ARE CDI. WILL CONTINUE TO MONITOR PER POC.
[2018-09-06 09:16] VITALS: BP 107/68
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
[2018-09-06 12:52] VITALS: BP 146/91
--- NOTE | 2018-09-06 14:10 | NUR ---
WOUND FOLLOW UP: PT. WAS SEEN TODAY BY DR. RG AND MYSELF. PT. HAD HIS WOUND VAC CHANGED TODAY AND TOLERATED PROCEDURE WELL. RECOMMENDATIONS: CONTINUE WITH CURRENT PLAN OF CARE. PT. AND STAFF NURSE WERE INSTRUCTED ON PLAN OF CARE.
--- NOTE | 2018-09-06 15:04 | NUR ---
FAXED CLINICAL UPDATE TO [facility] SPOKE WITH ANTON AND SHE RECEIVED UPDATE AND THAT THERE WILL BE NO WEEKEND DISCHARGE. DCP TO FOLLOW.
[2018-09-06 17:33] VITALS: BP 106/67
--- NOTE | 2018-09-06 19:32 | NUR ---
ASSUMED CARE OF PT AT 0700. PT A&OX4, VITALS WITHIN NORMAL LIMITS. PT WAS SINUS RHYTHM WITH 1ST DEGREE ON TELEMETRY. WOUND NURSE/PHYSICIANS CAME TO DRESS SURGICAL SITES TO RIGHT LOWER EXTREMITY. SITES HEALING WELL. PT HAS WOUND VAC DRESSING TO FRONT AND BACK OF LEG AND CALF SITE APPEARED SLIGHTLY LESS SUCTIONED THAN FRONT. DRESSING REINFORCED AND NURSE CALLED. NO NEW ORDERS - AND WOUND VAC WAS NOT ALARMING. WILL CONT WITH POC.
[2018-09-06 19:34] VITALS: BP 111/67
[2018-09-07 04:35] LABS: HEMATOCRIT 34.1 % (42.0-52.0); HEMOGLOBIN 11.4 gm/dL (14.0-18.0); MCH 28.9 pg (26.0-34.0); MCHC 33.5 g/dL (28.0-37.0); MCV 86.3 fL (80.0-100.0); RBC 3.95 mil/uL (4.50-6.00); RDW 15.7 % (10.5-14.5); WBC 6.2 thou/uL (4.0-11.0)
[2018-09-07 04:42] LABS: INR 1.1
[2018-09-07 04:43] VITALS: BP 122/70
[2018-09-07 04:53] LABS: CALCIUM 8.9 mg/dL (8.5-10.1); CREATININE 0.8 mg/dL (0.7-1.3); MAGNESIUM 1.9 mg/dL (1.8-2.4); POTASSIUM 4.1 mmol/L (3.5-5.1)
--- NOTE | 2018-09-07 05:36 | NUR ---
ASSUMED PT CARE AT 1900. VSS. PT A&OX4. ASSESSMENTS AND MEDS GIVEN ARE DOCUMENTED. PT HAD 50ML OUT FROM HIS WOUND VAC THIS SHIFT, BLE DRESSING STILL INTACT. PT IS STABLE, RESTED WELL ALL NIGHT, PAIN MEDS GIVEN PER REQUEST, NO FURTHER COMPLAINTS, WILL CONTINUE TO MONITOR PER POC.
[2018-09-07 08:44] VITALS: BP 149/85
[2018-09-07 12:00] VITALS: BP 142/83
[2018-09-07 14:33] VITALS: BP 123/82
--- NOTE | 2018-09-07 18:13 | NUR ---
AAOX3. PLEASANT AND COOPERATIVE. WOUND VAC INTACT. UP TO BR WITH MIN ASSIST. REPORTED LARGE BM. NO C/O PAIN. GOOD APPETITE. LEFT LEG DRESSING CHANGED - ROLLER GAUZE AND MENDY.
[2018-09-07 20:12] VITALS: BP 100/57
[2018-09-08 04:27] LABS: INR 1.2; PROTIME 12.9 Seconds (9.3-11.4)
[2018-09-08 04:34] VITALS: BP 96/57
--- NOTE | 2018-09-08 05:34 | NUR ---
ASSUMED PT CARE AT 1900. VSS. PT A&0X4. PT IS STABLE, SLEPT WELL ALL NIGHT, COMPLAINED OF PAIN, MORPHINE GIVEN, RIGHT LEG DRESSING REINFORCED, NO NEW OCCURENCES OVERNIGHT. ASSESSMENTS AND MEDS GIVEN ARE CHARTED, WILL CONTINUE TO MONITOR.
[2018-09-08 08:26] VITALS: BP 130/87
[2018-09-08 13:45] VITALS: BP 106/75
--- NOTE | 2018-09-08 15:26 | NUR ---
ASSUMED CARE AT 1400, SHIFT ASSESSMENT DONE, VSS. SITTING IN THE CHAIR. DENIES ANY PAIN. WILL CONTINUE TO ASSESS AND ASSIST WITH ADLs NEEDED.
--- NOTE | 2018-09-08 16:17 | NUR ---
ASSUMED CARE OF PT AT 0700. PT A&OX4. PT GOT UP WITH MOD ASSIST, HOLDS ON TO FURNITURE FOR BALANCE. HE WAS UP TO CHAIR AFTER BREAKFAST. PT VITALS WITHIN NORMAL LIMITS, PT WAS SINUS RHYTHM WITH 1ST DEGREE BLOCK ON TELEMETRY. PT TRANSFERRED TO SENIOR SUITES APPROXIMATELY 1330. REPORT GIVEN TO GARDENIA HAMILTON. TELEMETRY BOX REMOVED AND ALL BELONGINGS TRANSFERRED TO NEW ROOM.
[2018-09-08 20:56] VITALS: BP 106/65
--- NOTE | 2018-09-09 06:04 | NUR ---
PATIENTSS CARES WERE ASSUMED AT SHIFT CHANGE. PATIENT WAS ASSESSED AND MEDS WERE PASSED. PATIENT HAS A WOUND VAC ON HIS RIGHT LEG THAT IS SEALED AND IN PLACE. PATIENT IS ABLE TO AMBULATE TO THE RESTROOM WITH STAND BY ASSIST. HOURLY ROUNDING WAS DONE. PATIENT DID APPER TO SLEEP MORST OF THIS SHIFT. HE WAS UP TWICE TO URINATE. THE BED IS IN A LOW AND LOCKED POSITION AND THE BED ALARM IS ON.
[2018-09-09 06:53] LABS: INR 1.4; PROTIME 14.6 Seconds (9.3-11.4)
[2018-09-09 08:05] VITALS: BP 118/76
[2018-09-09 14:34] VITALS: BP 115/77
--- NOTE | 2018-09-09 14:42 | NUR ---
Following for d/c planning needs. Pt to be d/c home today with [facility]. Pt has home wound vac in place per wound care nurse. urban and regional planner to fax orders to home health when available. No other needs identified.
--- NOTE | 2018-09-09 15:25 | NUR ---
WOUND FOLLOW UP: PT. WAS SEEN TODAY BY DR. STACY AND MYSELF. PT. WOUND VAC DRESSING WAS CHANGED TODAY. PT. WOUND IS HEALING WELL. THE SKIN SUB HAS GRANULATED IN AND JACKIE HAVE BEEN REMOVED. PT. TOLERATED THE PROCEDURE OF STAPLE REMOVAL AND VAC APPLICATION WELL. RECOMMENDATIONS: CONTINUE WITH CURRENT PLAN OF CARE. PT. AND STAFF NURSE WERE INSTRUCTED ON PLAN OF CARE.
[2018-09-09] MEDS ORDERED: FLAGYL500 M1 PO (15:56)
[2018-09-09] MEDS ORDERED: CEFDINIR300 MG PO (15:56)
--- NOTE | 2018-09-09 17:07 | NUR ---
patient will dc today with hh, DP faxed hh orders to [facility] and spoke with Ghazala she did receive fax.
--- NOTE | 2018-09-09 18:27 | NUR ---
ASSUMED CARE AT 0715, PATIENT ALERT AND ORIENTED X 4. PATIENT UP AD REAGAN. PATIENT DENIES PAIN THIS SHIFT. PATIENT DENIES PAIN THIS SHIFT. PATIENT HAS WOUND VAC TO RIGHT LEG, LEAKING SOME AT POSTERIOR AREA. WOUND CARE TEAM/VERONICA CHANGED WOUND VAC DRESSING, WOUND VAC CHANGED TO BATTERY PACK FOR DISCHARGE TO HOME. PATIENT HAS RIGHT FOREARM IV IN PLACE, REMOVED AT DINNER TIME PRIOR TO DISCHARGE. PATIENT RECEIVED IV ANTIBIOTICS THIS AM, REFUSED 1700 IV ANTIBIOTIC. PATIENT WILL DISCHARGE TO HOME WITH HOME HEALTH. ALL DISCHARGE PAPERWORK WILL BE SENT WITH THE PATIENT AND ALL PERSONAL BELONGINGS WILL BE SENT WITH THE PATIENT.
--- NOTE | 2018-09-09 20:22 | NUR ---
Pt A/OX4,VSS. Up ad clarissa,denies pain on assessment. Woundvac intact on RLE.Pt dc home at 1999,escorted out by nurse/field crop grower to the packing lot.All personal belongings sent with pt.
[2018-09-09 20:26] VITALS: BP 115/77
--- NOTE | 2018-09-12 16:19 | NUR ---
Received telephone call from [facility] nurse. She said pt is not appropriate to be at home because his house is dirty. RN also said that pt did not have adequate supplies for wound vac at home. Home health RN spoke with Soraida wound care nurse. Wound care nurse said that pt was sent home with supplies and if additional supplies are needed for home use, home health nurse will need to call [employer] wound vac to order new supplies. Pt is alert and oriented and has declined to go to SNF. Home health nurse will contact wound care nurse if she has additional questions.
== END 2018-09-09 20:00 | disposition home health service (06) | DRG 574 ==
LOC: PRE 12:31 → 2N 13:05 → SICU 09-08 14:26
PROVIDERS: Hospitalist; Internal Medicine; Nurse Practitioner; ADMIT Internal Medicine
DX: L97.819 Non-pressure chronic ulcer of other part of right lower leg with unspecified severity (principal); L03.115 Cellulitis of right lower limb; L97.829 Non-pressure chronic ulcer of other part of left lower leg with unspecified severity; E78.5 Hyperlipidemia, unspecified; N40.0 Benign prostatic hyperplasia without lower urinary tract symptoms; I87.2 Venous insufficiency (chronic) (peripheral); D64.9 Anemia, unspecified; K59.00 Constipation, unspecified; E66.9 Obesity, unspecified; Z68.22 Body mass index [BMI] 22.0-22.9, adult; Z85.46 Personal history of malignant neoplasm of prostate; Z92.3 Personal history of irradiation; Z86.718 Personal history of other venous thrombosis and embolism; Z86.711 Personal history of pulmonary embolism; Z87.828 Personal history of other (healed) physical injury and trauma; Z87.891 Personal history of nicotine dependence; Z79.01 Long term (current) use of anticoagulants; Z79.899 Other long term (current) drug therapy; Z80.7 Family history of other malignant neoplasms of lymphoid, hematopoietic and related tissues
CPT/HCPCS: 10081; 10797; 15002; 50010; 50101; 50386; 51412; 57091; 57138; 57143; 57192; 62110; 62900; 70005

== ENCOUNTER → 2018-09-13 | Outpatient (CLI) | payer OTHER ==
[~2018-09-13] MED LIST changes: +CEFDINIR300 MG PO; +FLAGYL500 M1 PO
== END ==
LOC: HYPER 08-21 00:30
DX: T81.89XD Other complications of procedures, not elsewhere classified, subsequent encounter (principal); I87.331 Chronic venous hypertension (idiopathic) with ulcer and inflammation of right lower extremity; L97.812 Non-pressure chronic ulcer of other part of right lower leg with fat layer exposed; L97.311 Non-pressure chronic ulcer of right ankle limited to breakdown of skin; I87.312 Chronic venous hypertension (idiopathic) with ulcer of left lower extremity; L97.821 Non-pressure chronic ulcer of other part of left lower leg limited to breakdown of skin; L97.321 Non-pressure chronic ulcer of left ankle limited to breakdown of skin; L97.512 Non-pressure chronic ulcer of other part of right foot with fat layer exposed; L84 Corns and callosities; E66.01 Morbid (severe) obesity due to excess calories; F17.210 Nicotine dependence, cigarettes, uncomplicated; Z85.46 Personal history of malignant neoplasm of prostate; Z68.41 Body mass index [BMI] 40.0-44.9, adult; Y83.8 Other surgical procedures as the cause of abnormal reaction of the patient, or of later complication, without mention of misadventure at the time of the procedure

== ENCOUNTER → 2018-09-23 | Outpatient (CLI) | payer OTHER | LOC: HYPER 06:56 | DX: T81.89XD Other complications of procedures, not elsewhere classified, subsequent encounter (principal); I87.331 Chronic venous hypertension (idiopathic) with ulcer and inflammation of right lower extremity; L97.812 Non-pressure chronic ulcer of other part of right lower leg with fat layer exposed; L97.311 Non-pressure chronic ulcer of right ankle limited to breakdown of skin; L97.512 Non-pressure chronic ulcer of other part of right foot with fat layer exposed; I87.312 Chronic venous hypertension (idiopathic) with ulcer of left lower extremity; L97.822 Non-pressure chronic ulcer of other part of left lower leg with fat layer exposed; E66.01 Morbid (severe) obesity due to excess calories; R60.9 Edema, unspecified; F17.210 Nicotine dependence, cigarettes, uncomplicated; Z85.46 Personal history of malignant neoplasm of prostate; Z68.41 Body mass index [BMI] 40.0-44.9, adult; Y83.8 Other surgical procedures as the cause of abnormal reaction of the patient, or of later complication, without mention of misadventure at the time of the procedure ==

== ENCOUNTER → 2018-10-07 | Outpatient (CLI) | payer OTHER | LOC: HYPER 06:51 | DX: T81.89XD Other complications of procedures, not elsewhere classified, subsequent encounter (principal); I87.331 Chronic venous hypertension (idiopathic) with ulcer and inflammation of right lower extremity; L97.812 Non-pressure chronic ulcer of other part of right lower leg with fat layer exposed; L97.822 Non-pressure chronic ulcer of other part of left lower leg with fat layer exposed; L97.512 Non-pressure chronic ulcer of other part of right foot with fat layer exposed; L84 Corns and callosities; E66.01 Morbid (severe) obesity due to excess calories; R60.9 Edema, unspecified; F17.210 Nicotine dependence, cigarettes, uncomplicated; Z68.41 Body mass index [BMI] 40.0-44.9, adult; Z85.46 Personal history of malignant neoplasm of prostate; Y83.8 Other surgical procedures as the cause of abnormal reaction of the patient, or of later complication, without mention of misadventure at the time of the procedure ==

== ENCOUNTER → 2018-10-22 | Outpatient (CLI) | payer OTHER | LOC: HYPER 06:42 | DX: T81.89XD Other complications of procedures, not elsewhere classified, subsequent encounter (principal); I87.331 Chronic venous hypertension (idiopathic) with ulcer and inflammation of right lower extremity; L97.812 Non-pressure chronic ulcer of other part of right lower leg with fat layer exposed; L97.822 Non-pressure chronic ulcer of other part of left lower leg with fat layer exposed; L97.512 Non-pressure chronic ulcer of other part of right foot with fat layer exposed; L97.311 Non-pressure chronic ulcer of right ankle limited to breakdown of skin; E66.01 Morbid (severe) obesity due to excess calories; R60.9 Edema, unspecified; F17.210 Nicotine dependence, cigarettes, uncomplicated; Z68.42 Body mass index [BMI] 45.0-49.9, adult; Z85.46 Personal history of malignant neoplasm of prostate; Y83.8 Other surgical procedures as the cause of abnormal reaction of the patient, or of later complication, without mention of misadventure at the time of the procedure ==

== ENCOUNTER → 2018-11-05 | Outpatient (CLI) | payer OTHER | LOC: HYPER 06:15 | DX: T81.89XD Other complications of procedures, not elsewhere classified, subsequent encounter (principal); I87.331 Chronic venous hypertension (idiopathic) with ulcer and inflammation of right lower extremity; L97.812 Non-pressure chronic ulcer of other part of right lower leg with fat layer exposed; L97.512 Non-pressure chronic ulcer of other part of right foot with fat layer exposed; L97.311 Non-pressure chronic ulcer of right ankle limited to breakdown of skin; I87.312 Chronic venous hypertension (idiopathic) with ulcer of left lower extremity; L97.822 Non-pressure chronic ulcer of other part of left lower leg with fat layer exposed; E66.01 Morbid (severe) obesity due to excess calories; R60.9 Edema, unspecified; F17.210 Nicotine dependence, cigarettes, uncomplicated; Z68.41 Body mass index [BMI] 40.0-44.9, adult; Z85.46 Personal history of malignant neoplasm of prostate; Y83.8 Other surgical procedures as the cause of abnormal reaction of the patient, or of later complication, without mention of misadventure at the time of the procedure ==

== ENCOUNTER → 2018-11-19 | Outpatient (CLI) | payer OTHER | LOC: HYPER 06:54 | DX: T81.89XD Other complications of procedures, not elsewhere classified, subsequent encounter (principal); I87.331 Chronic venous hypertension (idiopathic) with ulcer and inflammation of right lower extremity; L97.812 Non-pressure chronic ulcer of other part of right lower leg with fat layer exposed; L97.822 Non-pressure chronic ulcer of other part of left lower leg with fat layer exposed; L97.512 Non-pressure chronic ulcer of other part of right foot with fat layer exposed; L97.311 Non-pressure chronic ulcer of right ankle limited to breakdown of skin; E66.01 Morbid (severe) obesity due to excess calories; R60.9 Edema, unspecified; F17.210 Nicotine dependence, cigarettes, uncomplicated; Z85.46 Personal history of malignant neoplasm of prostate; Z68.41 Body mass index [BMI] 40.0-44.9, adult; Y83.8 Other surgical procedures as the cause of abnormal reaction of the patient, or of later complication, without mention of misadventure at the time of the procedure ==

== ENCOUNTER → 2018-12-04 | Outpatient (CLI) | payer OTHER | LOC: HYPER 09:53 | DX: T81.89XD Other complications of procedures, not elsewhere classified, subsequent encounter (principal); I87.333 Chronic venous hypertension (idiopathic) with ulcer and inflammation of bilateral lower extremity; L97.812 Non-pressure chronic ulcer of other part of right lower leg with fat layer exposed; L97.822 Non-pressure chronic ulcer of other part of left lower leg with fat layer exposed; L97.512 Non-pressure chronic ulcer of other part of right foot with fat layer exposed; L97.311 Non-pressure chronic ulcer of right ankle limited to breakdown of skin; L97.221 Non-pressure chronic ulcer of left calf limited to breakdown of skin; L84 Corns and callosities; R60.9 Edema, unspecified; E66.01 Morbid (severe) obesity due to excess calories; F17.210 Nicotine dependence, cigarettes, uncomplicated; Z85.46 Personal history of malignant neoplasm of prostate; Y83.8 Other surgical procedures as the cause of abnormal reaction of the patient, or of later complication, without mention of misadventure at the time of the procedure ==

== ENCOUNTER → 2018-12-18 | Outpatient (CLI) | payer OTHER | LOC: HYPER 06:29 | DX: I87.331 Chronic venous hypertension (idiopathic) with ulcer and inflammation of right lower extremity (principal); L97.812 Non-pressure chronic ulcer of other part of right lower leg with fat layer exposed; L97.311 Non-pressure chronic ulcer of right ankle limited to breakdown of skin; L97.222 Non-pressure chronic ulcer of left calf with fat layer exposed; L97.512 Non-pressure chronic ulcer of other part of right foot with fat layer exposed; E66.01 Morbid (severe) obesity due to excess calories; L84 Corns and callosities; R60.9 Edema, unspecified; F17.210 Nicotine dependence, cigarettes, uncomplicated; Z68.41 Body mass index [BMI] 40.0-44.9, adult; Z85.46 Personal history of malignant neoplasm of prostate ==

== ENCOUNTER → 2019-01-01 | Outpatient (CLI) | payer OTHER | LOC: HYPER 06:15 | DX: T81.89XD Other complications of procedures, not elsewhere classified, subsequent encounter (principal); I87.333 Chronic venous hypertension (idiopathic) with ulcer and inflammation of bilateral lower extremity; L97.222 Non-pressure chronic ulcer of left calf with fat layer exposed; L97.312 Non-pressure chronic ulcer of right ankle with fat layer exposed; L97.812 Non-pressure chronic ulcer of other part of right lower leg with fat layer exposed; L97.512 Non-pressure chronic ulcer of other part of right foot with fat layer exposed; E66.01 Morbid (severe) obesity due to excess calories; L84 Corns and callosities; R60.9 Edema, unspecified; F17.210 Nicotine dependence, cigarettes, uncomplicated; Z68.41 Body mass index [BMI] 40.0-44.9, adult; Z85.46 Personal history of malignant neoplasm of prostate; Y83.8 Other surgical procedures as the cause of abnormal reaction of the patient, or of later complication, without mention of misadventure at the time of the procedure ==

== ENCOUNTER → 2019-01-15 | Outpatient (CLI) | payer OTHER | LOC: HYPER 06:39 | DX: T81.89XD Other complications of procedures, not elsewhere classified, subsequent encounter (principal); I87.333 Chronic venous hypertension (idiopathic) with ulcer and inflammation of bilateral lower extremity; L97.812 Non-pressure chronic ulcer of other part of right lower leg with fat layer exposed; L97.512 Non-pressure chronic ulcer of other part of right foot with fat layer exposed; L97.822 Non-pressure chronic ulcer of other part of left lower leg with fat layer exposed; L97.311 Non-pressure chronic ulcer of right ankle limited to breakdown of skin; L97.221 Non-pressure chronic ulcer of left calf limited to breakdown of skin; L84 Corns and callosities; R21 Rash and other nonspecific skin eruption; E66.01 Morbid (severe) obesity due to excess calories; R60.9 Edema, unspecified; Z85.46 Personal history of malignant neoplasm of prostate; Z68.41 Body mass index [BMI] 40.0-44.9, adult; Y83.8 Other surgical procedures as the cause of abnormal reaction of the patient, or of later complication, without mention of misadventure at the time of the procedure ==

== ENCOUNTER → 2019-01-30 | Outpatient (CLI) | payer OTHER | LOC: HYPER 06:38 | DX: T81.89XD Other complications of procedures, not elsewhere classified, subsequent encounter (principal); I87.331 Chronic venous hypertension (idiopathic) with ulcer and inflammation of right lower extremity; L97.812 Non-pressure chronic ulcer of other part of right lower leg with fat layer exposed; I87.332 Chronic venous hypertension (idiopathic) with ulcer and inflammation of left lower extremity; L97.221 Non-pressure chronic ulcer of left calf limited to breakdown of skin; L97.311 Non-pressure chronic ulcer of right ankle limited to breakdown of skin; L97.512 Non-pressure chronic ulcer of other part of right foot with fat layer exposed; E66.01 Morbid (severe) obesity due to excess calories; R60.9 Edema, unspecified; F17.210 Nicotine dependence, cigarettes, uncomplicated; Z68.41 Body mass index [BMI] 40.0-44.9, adult; Z85.46 Personal history of malignant neoplasm of prostate; Y83.8 Other surgical procedures as the cause of abnormal reaction of the patient, or of later complication, without mention of misadventure at the time of the procedure ==

== ENCOUNTER → 2019-02-20 | Outpatient (CLI) | payer OTHER | LOC: HYPER 07:05 | DX: T81.89XD Other complications of procedures, not elsewhere classified, subsequent encounter (principal); I87.333 Chronic venous hypertension (idiopathic) with ulcer and inflammation of bilateral lower extremity; L97.222 Non-pressure chronic ulcer of left calf with fat layer exposed; L97.812 Non-pressure chronic ulcer of other part of right lower leg with fat layer exposed; L97.512 Non-pressure chronic ulcer of other part of right foot with fat layer exposed; L97.311 Non-pressure chronic ulcer of right ankle limited to breakdown of skin; E66.01 Morbid (severe) obesity due to excess calories; R60.9 Edema, unspecified; F17.210 Nicotine dependence, cigarettes, uncomplicated; Z68.41 Body mass index [BMI] 40.0-44.9, adult; Z85.46 Personal history of malignant neoplasm of prostate; Y83.8 Other surgical procedures as the cause of abnormal reaction of the patient, or of later complication, without mention of misadventure at the time of the procedure ==

== ENCOUNTER → 2019-03-06 | Outpatient (CLI) | payer OTHER | LOC: HYPER 06:59 | DX: T81.89XD Other complications of procedures, not elsewhere classified, subsequent encounter (principal); I87.333 Chronic venous hypertension (idiopathic) with ulcer and inflammation of bilateral lower extremity; L97.812 Non-pressure chronic ulcer of other part of right lower leg with fat layer exposed; L97.822 Non-pressure chronic ulcer of other part of left lower leg with fat layer exposed; L97.512 Non-pressure chronic ulcer of other part of right foot with fat layer exposed; I87.2 Venous insufficiency (chronic) (peripheral); E66.01 Morbid (severe) obesity due to excess calories; R60.9 Edema, unspecified; F17.210 Nicotine dependence, cigarettes, uncomplicated; Z68.41 Body mass index [BMI] 40.0-44.9, adult; Z85.46 Personal history of malignant neoplasm of prostate; Y83.8 Other surgical procedures as the cause of abnormal reaction of the patient, or of later complication, without mention of misadventure at the time of the procedure ==

== ENCOUNTER → 2019-03-25 | Outpatient (CLI) | payer OTHER | LOC: HYPER 15:57 | DX: T81.89XD Other complications of procedures, not elsewhere classified, subsequent encounter (principal); I87.333 Chronic venous hypertension (idiopathic) with ulcer and inflammation of bilateral lower extremity; L97.812 Non-pressure chronic ulcer of other part of right lower leg with fat layer exposed; L97.222 Non-pressure chronic ulcer of left calf with fat layer exposed; L97.512 Non-pressure chronic ulcer of other part of right foot with fat layer exposed; L97.311 Non-pressure chronic ulcer of right ankle limited to breakdown of skin; E66.01 Morbid (severe) obesity due to excess calories; R60.9 Edema, unspecified; Z85.46 Personal history of malignant neoplasm of prostate; F17.210 Nicotine dependence, cigarettes, uncomplicated; Y83.8 Other surgical procedures as the cause of abnormal reaction of the patient, or of later complication, without mention of misadventure at the time of the procedure ==

== ENCOUNTER → 2019-04-29 | Outpatient (CLI) | payer OTHER | LOC: HYPER 07:51 | DX: T81.89XD Other complications of procedures, not elsewhere classified, subsequent encounter (principal); I87.333 Chronic venous hypertension (idiopathic) with ulcer and inflammation of bilateral lower extremity; L97.222 Non-pressure chronic ulcer of left calf with fat layer exposed; L97.812 Non-pressure chronic ulcer of other part of right lower leg with fat layer exposed; L97.512 Non-pressure chronic ulcer of other part of right foot with fat layer exposed; L97.311 Non-pressure chronic ulcer of right ankle limited to breakdown of skin; E66.01 Morbid (severe) obesity due to excess calories; R60.9 Edema, unspecified; F17.210 Nicotine dependence, cigarettes, uncomplicated; Z85.46 Personal history of malignant neoplasm of prostate; Z68.41 Body mass index [BMI] 40.0-44.9, adult; Y83.8 Other surgical procedures as the cause of abnormal reaction of the patient, or of later complication, without mention of misadventure at the time of the procedure ==

== ENCOUNTER → 2019-05-27 | Outpatient (CLI) | payer OTHER | LOC: HYPER 10:30 | DX: T81.89XD Other complications of procedures, not elsewhere classified, subsequent encounter (principal); I87.333 Chronic venous hypertension (idiopathic) with ulcer and inflammation of bilateral lower extremity; L97.222 Non-pressure chronic ulcer of left calf with fat layer exposed; L97.311 Non-pressure chronic ulcer of right ankle limited to breakdown of skin; L97.512 Non-pressure chronic ulcer of other part of right foot with fat layer exposed; E66.01 Morbid (severe) obesity due to excess calories; R60.9 Edema, unspecified; F17.210 Nicotine dependence, cigarettes, uncomplicated; Z68.41 Body mass index [BMI] 40.0-44.9, adult; Z85.46 Personal history of malignant neoplasm of prostate; Y83.8 Other surgical procedures as the cause of abnormal reaction of the patient, or of later complication, without mention of misadventure at the time of the procedure ==

== ENCOUNTER → 2019-06-16 | Outpatient (CLI) | payer OTHER ==
[~2019-06-16] MED LIST changes: +NORCO 5-325 TA1 EAC1 PO; +XARELTO10 M1 PO
== END ==
LOC: CANPRECLI → HYPER 08:48
DX: T81.89XD Other complications of procedures, not elsewhere classified, subsequent encounter (principal); I87.333 Chronic venous hypertension (idiopathic) with ulcer and inflammation of bilateral lower extremity; L97.812 Non-pressure chronic ulcer of other part of right lower leg with fat layer exposed; L97.822 Non-pressure chronic ulcer of other part of left lower leg with fat layer exposed; L97.311 Non-pressure chronic ulcer of right ankle limited to breakdown of skin; L97.512 Non-pressure chronic ulcer of other part of right foot with fat layer exposed; I87.2 Venous insufficiency (chronic) (peripheral); E66.01 Morbid (severe) obesity due to excess calories; R60.9 Edema, unspecified; F17.210 Nicotine dependence, cigarettes, uncomplicated; Z85.46 Personal history of malignant neoplasm of prostate; Y83.8 Other surgical procedures as the cause of abnormal reaction of the patient, or of later complication, without mention of misadventure at the time of the procedure

== ENCOUNTER 2019-06-27 06:00 | Day surgery (SDC) | payer OTHER ==
[~2019-06-27] VITALS: Ht 190.5 cm; Wt 160.6 kg
[2019-06-27 06:48] LABS: HEMATOCRIT 38.2 % (42.0-52.0); HEMOGLOBIN 12.4 gm/dL (14.0-18.0)
[2019-06-27 07:15] VITALS: BP 116/66
[2019-06-27 07:34] LABS: INR 1.1; PROTIME 10.8 Seconds (9.3-11.4)
[2019-06-27] MEDS ORDERED: NORCO 5-325 TA1 EAC1 PO (09:19)
[2019-06-27 09:25] VITALS: BP 116/66
--- NOTE | 2019-06-27 14:26 | EKG ---
[address] [place] [address] ELECTROCARDIOGRAM REPORT Name: ARGUETA,MELLISA Angel Room #: [facility]#: [id number] Admission: 06/27/19 Attend Phys: Dom Vega MD, F Discharge: 06/27/19 Date of : 51 Report #: [id number] THIS REPORT FOR: //name// [facility] Test Date: 2019-06-27 Test Time: 06:33:16 Pat Name: MELLISA ARGUETA Department: Room: 150 3 Gender: M Patient Coordinator: keaton : 1955 Requested By: Dom Vega Order Number: [id number] MD: Dick Sullivan Measurements Intervals [place] Rate: 83 P: 14 IA: 206 QRS: 51 QRSD: 97 T: 48 QT: 384 QTc: 452 Interpretive Statements Sinus rhythm Baseline wander in lead(s) V1 Compared to ECG 08/05/2015 19:58:09 Electronically Signed On 06-27-2019 14:25:42 INSTRUMENT REPAIR SPECIALIST by Dick Sullivan [email or web address] <ELECTRONICALLY SIGNED> By: Dick Sullivan MD 06/27/19 1425 2 2 Dick Sullivan MD /MELY
== END 2019-06-27 10:05 | disposition home or self-care (01) ==
LOC: TBA 06:00 → OR 06:00
PROVIDERS: Surgery
DX: T81.89XA Other complications of procedures, not elsewhere classified, initial encounter (principal); S81.801D Unspecified open wound, right lower leg, subsequent encounter; S81.802D Unspecified open wound, left lower leg, subsequent encounter; I83.019 Varicose veins of right lower extremity with ulcer of unspecified site; I83.029 Varicose veins of left lower extremity with ulcer of unspecified site; E78.5 Hyperlipidemia, unspecified; E66.01 Morbid (severe) obesity due to excess calories; Z98.890 Other specified postprocedural states; Z79.899 Other long term (current) drug therapy; Z86.711 Personal history of pulmonary embolism; Z87.891 Personal history of nicotine dependence; Z87.442 Personal history of urinary calculi; Z85.46 Personal history of malignant neoplasm of prostate; Z79.01 Long term (current) use of anticoagulants; Z68.41 Body mass index [BMI] 40.0-44.9, adult; Z86.718 Personal history of other venous thrombosis and embolism; Z88.8 Allergy status to other drugs, medicaments and biological substances; X58.XXXD Exposure to other specified factors, subsequent encounter; Y83.8 Other surgical procedures as the cause of abnormal reaction of the patient, or of later complication, without mention of misadventure at the time of the procedure
CPT/HCPCS: 50010; 50101; 50386; 50403; 57119; 57120; 57192; 57275; 62110; 62900; 70005

== ENCOUNTER → 2019-07-14 | Outpatient (CLI) | payer OTHER | LOC: HYPER 13:27 | DX: T81.89XD Other complications of procedures, not elsewhere classified, subsequent encounter (principal); I87.333 Chronic venous hypertension (idiopathic) with ulcer and inflammation of bilateral lower extremity; L97.312 Non-pressure chronic ulcer of right ankle with fat layer exposed; L97.222 Non-pressure chronic ulcer of left calf with fat layer exposed; L97.512 Non-pressure chronic ulcer of other part of right foot with fat layer exposed; E66.01 Morbid (severe) obesity due to excess calories; F17.210 Nicotine dependence, cigarettes, uncomplicated; Z68.41 Body mass index [BMI] 40.0-44.9, adult; Z85.46 Personal history of malignant neoplasm of prostate; Z79.01 Long term (current) use of anticoagulants; Y83.8 Other surgical procedures as the cause of abnormal reaction of the patient, or of later complication, without mention of misadventure at the time of the procedure ==

== ENCOUNTER → 2019-07-29 | Outpatient (CLI) | payer OTHER | LOC: HYPER 09:58 | DX: T81.89XD Other complications of procedures, not elsewhere classified, subsequent encounter (principal); I87.333 Chronic venous hypertension (idiopathic) with ulcer and inflammation of bilateral lower extremity; L97.812 Non-pressure chronic ulcer of other part of right lower leg with fat layer exposed; L97.512 Non-pressure chronic ulcer of other part of right foot with fat layer exposed; L97.822 Non-pressure chronic ulcer of other part of left lower leg with fat layer exposed; L97.311 Non-pressure chronic ulcer of right ankle limited to breakdown of skin; L97.221 Non-pressure chronic ulcer of left calf limited to breakdown of skin; E66.01 Morbid (severe) obesity due to excess calories; F17.210 Nicotine dependence, cigarettes, uncomplicated; Z68.41 Body mass index [BMI] 40.0-44.9, adult; Z85.46 Personal history of malignant neoplasm of prostate; Z79.01 Long term (current) use of anticoagulants; Y83.8 Other surgical procedures as the cause of abnormal reaction of the patient, or of later complication, without mention of misadventure at the time of the procedure ==

== ENCOUNTER → 2019-08-12 | Outpatient (CLI) | payer OTHER | LOC: HYPER 10:11 | DX: T81.89XD Other complications of procedures, not elsewhere classified, subsequent encounter (principal); L97.512 Non-pressure chronic ulcer of other part of right foot with fat layer exposed; L97.812 Non-pressure chronic ulcer of other part of right lower leg with fat layer exposed; L97.822 Non-pressure chronic ulcer of other part of left lower leg with fat layer exposed; L97.311 Non-pressure chronic ulcer of right ankle limited to breakdown of skin; L97.221 Non-pressure chronic ulcer of left calf limited to breakdown of skin; I87.2 Venous insufficiency (chronic) (peripheral); F17.210 Nicotine dependence, cigarettes, uncomplicated; Z85.46 Personal history of malignant neoplasm of prostate; Z79.01 Long term (current) use of anticoagulants; Y83.8 Other surgical procedures as the cause of abnormal reaction of the patient, or of later complication, without mention of misadventure at the time of the procedure ==

== ENCOUNTER → 2019-10-07 | Outpatient (CLI) | payer OTHER | LOC: HYPER 10-06 16:08 | DX: T81.89XD Other complications of procedures, not elsewhere classified, subsequent encounter (principal); I87.333 Chronic venous hypertension (idiopathic) with ulcer and inflammation of bilateral lower extremity; L97.812 Non-pressure chronic ulcer of other part of right lower leg with fat layer exposed; L97.822 Non-pressure chronic ulcer of other part of left lower leg with fat layer exposed; L97.512 Non-pressure chronic ulcer of other part of right foot with fat layer exposed; L97.311 Non-pressure chronic ulcer of right ankle limited to breakdown of skin; L97.221 Non-pressure chronic ulcer of left calf limited to breakdown of skin; L84 Corns and callosities; E66.01 Morbid (severe) obesity due to excess calories; R60.9 Edema, unspecified; F17.210 Nicotine dependence, cigarettes, uncomplicated; Z85.46 Personal history of malignant neoplasm of prostate; Z68.41 Body mass index [BMI] 40.0-44.9, adult; Y83.8 Other surgical procedures as the cause of abnormal reaction of the patient, or of later complication, without mention of misadventure at the time of the procedure ==

== ENCOUNTER → 2019-11-17 | Outpatient (CLI) | payer OTHER | LOC: HYPER 11:47 | DX: T81.89XD Other complications of procedures, not elsewhere classified, subsequent encounter (principal); I87.333 Chronic venous hypertension (idiopathic) with ulcer and inflammation of bilateral lower extremity; L97.812 Non-pressure chronic ulcer of other part of right lower leg with fat layer exposed; L97.822 Non-pressure chronic ulcer of other part of left lower leg with fat layer exposed; L97.512 Non-pressure chronic ulcer of other part of right foot with fat layer exposed; L97.311 Non-pressure chronic ulcer of right ankle limited to breakdown of skin; L97.221 Non-pressure chronic ulcer of left calf limited to breakdown of skin; L84 Corns and callosities; R60.9 Edema, unspecified; E66.01 Morbid (severe) obesity due to excess calories; F17.210 Nicotine dependence, cigarettes, uncomplicated; Z85.46 Personal history of malignant neoplasm of prostate; Z68.41 Body mass index [BMI] 40.0-44.9, adult; Y83.8 Other surgical procedures as the cause of abnormal reaction of the patient, or of later complication, without mention of misadventure at the time of the procedure ==

== ENCOUNTER → 2019-12-22 | Outpatient (CLI) | payer OTHER | LOC: HYPER 07:44 | PROVIDERS: ATTEND Emergency Medicine Emergency Medical Services | DX: T81.89XD Other complications of procedures, not elsewhere classified, subsequent encounter (principal); I87.333 Chronic venous hypertension (idiopathic) with ulcer and inflammation of bilateral lower extremity; L97.512 Non-pressure chronic ulcer of other part of right foot with fat layer exposed; L97.812 Non-pressure chronic ulcer of other part of right lower leg with fat layer exposed; L97.822 Non-pressure chronic ulcer of other part of left lower leg with fat layer exposed; L97.221 Non-pressure chronic ulcer of left calf limited to breakdown of skin; L97.311 Non-pressure chronic ulcer of right ankle limited to breakdown of skin; R35.8 Other polyuria; E66.01 Morbid (severe) obesity due to excess calories; R60.9 Edema, unspecified; F17.210 Nicotine dependence, cigarettes, uncomplicated; Z85.46 Personal history of malignant neoplasm of prostate; Z68.41 Body mass index [BMI] 40.0-44.9, adult; Z79.01 Long term (current) use of anticoagulants; Y83.8 Other surgical procedures as the cause of abnormal reaction of the patient, or of later complication, without mention of misadventure at the time of the procedure ==

== ENCOUNTER → 2020-01-12 | Outpatient (CLI) | payer OTHER | LOC: HYPER 09:55 | PROVIDERS: ATTEND Emergency Medicine | DX: T81.89XD Other complications of procedures, not elsewhere classified, subsequent encounter (principal); I87.333 Chronic venous hypertension (idiopathic) with ulcer and inflammation of bilateral lower extremity; L97.222 Non-pressure chronic ulcer of left calf with fat layer exposed; L97.311 Non-pressure chronic ulcer of right ankle limited to breakdown of skin; L97.812 Non-pressure chronic ulcer of other part of right lower leg with fat layer exposed; L97.512 Non-pressure chronic ulcer of other part of right foot with fat layer exposed; L84 Corns and callosities; R60.9 Edema, unspecified; E66.01 Morbid (severe) obesity due to excess calories; F17.210 Nicotine dependence, cigarettes, uncomplicated; Z85.46 Personal history of malignant neoplasm of prostate; Z68.41 Body mass index [BMI] 40.0-44.9, adult; Y83.8 Other surgical procedures as the cause of abnormal reaction of the patient, or of later complication, without mention of misadventure at the time of the procedure ==

== ENCOUNTER → 2020-02-02 | Outpatient (CLI) | payer OTHER | LOC: HYPER 12:46 | PROVIDERS: ATTEND Emergency Medicine | DX: T81.89XD Other complications of procedures, not elsewhere classified, subsequent encounter (principal); I87.333 Chronic venous hypertension (idiopathic) with ulcer and inflammation of bilateral lower extremity; L97.312 Non-pressure chronic ulcer of right ankle with fat layer exposed; L97.812 Non-pressure chronic ulcer of other part of right lower leg with fat layer exposed; L97.822 Non-pressure chronic ulcer of other part of left lower leg with fat layer exposed; L97.512 Non-pressure chronic ulcer of other part of right foot with fat layer exposed; L97.221 Non-pressure chronic ulcer of left calf limited to breakdown of skin; R60.9 Edema, unspecified; R35.8 Other polyuria; E66.01 Morbid (severe) obesity due to excess calories; F17.210 Nicotine dependence, cigarettes, uncomplicated; Z68.41 Body mass index [BMI] 40.0-44.9, adult; Z85.46 Personal history of malignant neoplasm of prostate; Z79.01 Long term (current) use of anticoagulants; Y83.8 Other surgical procedures as the cause of abnormal reaction of the patient, or of later complication, without mention of misadventure at the time of the procedure ==

== ENCOUNTER → 2020-03-01 | Outpatient (CLI) | payer OTHER | LOC: HYPER 13:03 | PROVIDERS: ATTEND Emergency Medicine | DX: T81.89XD Other complications of procedures, not elsewhere classified, subsequent encounter (principal); I87.333 Chronic venous hypertension (idiopathic) with ulcer and inflammation of bilateral lower extremity; L97.812 Non-pressure chronic ulcer of other part of right lower leg with fat layer exposed; L97.312 Non-pressure chronic ulcer of right ankle with fat layer exposed; L97.822 Non-pressure chronic ulcer of other part of left lower leg with fat layer exposed; L97.512 Non-pressure chronic ulcer of other part of right foot with fat layer exposed; R60.9 Edema, unspecified; E66.01 Morbid (severe) obesity due to excess calories; F17.210 Nicotine dependence, cigarettes, uncomplicated; Z68.41 Body mass index [BMI] 40.0-44.9, adult; Z85.46 Personal history of malignant neoplasm of prostate; Z79.01 Long term (current) use of anticoagulants; Y83.8 Other surgical procedures as the cause of abnormal reaction of the patient, or of later complication, without mention of misadventure at the time of the procedure ==

== ENCOUNTER → 2020-03-22 | Outpatient (CLI) | payer OTHER | LOC: HYPER 13:00 | PROVIDERS: ATTEND Emergency Medicine | DX: T81.89XD Other complications of procedures, not elsewhere classified, subsequent encounter (principal); I87.333 Chronic venous hypertension (idiopathic) with ulcer and inflammation of bilateral lower extremity; L97.812 Non-pressure chronic ulcer of other part of right lower leg with fat layer exposed; L97.512 Non-pressure chronic ulcer of other part of right foot with fat layer exposed; L97.312 Non-pressure chronic ulcer of right ankle with fat layer exposed; L97.222 Non-pressure chronic ulcer of left calf with fat layer exposed; L84 Corns and callosities; R60.9 Edema, unspecified; E66.01 Morbid (severe) obesity due to excess calories; F17.210 Nicotine dependence, cigarettes, uncomplicated; Z85.46 Personal history of malignant neoplasm of prostate; Z68.41 Body mass index [BMI] 40.0-44.9, adult; Y83.8 Other surgical procedures as the cause of abnormal reaction of the patient, or of later complication, without mention of misadventure at the time of the procedure ==

== ENCOUNTER → 2020-04-15 | Outpatient (CLI) | payer OTHER | LOC: HYPER 13:13 | PROVIDERS: ATTEND Emergency Medicine | DX: T81.89XD Other complications of procedures, not elsewhere classified, subsequent encounter (principal); I87.333 Chronic venous hypertension (idiopathic) with ulcer and inflammation of bilateral lower extremity; L97.312 Non-pressure chronic ulcer of right ankle with fat layer exposed; L97.222 Non-pressure chronic ulcer of left calf with fat layer exposed; L97.812 Non-pressure chronic ulcer of other part of right lower leg with fat layer exposed; L97.512 Non-pressure chronic ulcer of other part of right foot with fat layer exposed; L84 Corns and callosities; R60.9 Edema, unspecified; E66.01 Morbid (severe) obesity due to excess calories; F17.210 Nicotine dependence, cigarettes, uncomplicated; Z85.46 Personal history of malignant neoplasm of prostate; Z68.41 Body mass index [BMI] 40.0-44.9, adult; Y83.8 Other surgical procedures as the cause of abnormal reaction of the patient, or of later complication, without mention of misadventure at the time of the procedure ==

== ENCOUNTER → 2020-05-20 | Outpatient (CLI) | payer OTHER | LOC: HYPER 13:03 | PROVIDERS: ATTEND Emergency Medicine | DX: T81.89XD Other complications of procedures, not elsewhere classified, subsequent encounter (principal); I87.333 Chronic venous hypertension (idiopathic) with ulcer and inflammation of bilateral lower extremity; L97.812 Non-pressure chronic ulcer of other part of right lower leg with fat layer exposed; L97.312 Non-pressure chronic ulcer of right ankle with fat layer exposed; L97.222 Non-pressure chronic ulcer of left calf with fat layer exposed; L97.512 Non-pressure chronic ulcer of other part of right foot with fat layer exposed; L84 Corns and callosities; R60.9 Edema, unspecified; E66.01 Morbid (severe) obesity due to excess calories; F17.210 Nicotine dependence, cigarettes, uncomplicated; Z85.46 Personal history of malignant neoplasm of prostate; Z68.41 Body mass index [BMI] 40.0-44.9, adult; Y83.8 Other surgical procedures as the cause of abnormal reaction of the patient, or of later complication, without mention of misadventure at the time of the procedure ==

== ENCOUNTER → 2020-06-24 | Outpatient (CLI) | payer OTHER | LOC: HYPER 13:08 | PROVIDERS: ATTEND Emergency Medicine | DX: T81.89XD Other complications of procedures, not elsewhere classified, subsequent encounter (principal); I87.333 Chronic venous hypertension (idiopathic) with ulcer and inflammation of bilateral lower extremity; L97.312 Non-pressure chronic ulcer of right ankle with fat layer exposed; L97.812 Non-pressure chronic ulcer of other part of right lower leg with fat layer exposed; L97.822 Non-pressure chronic ulcer of other part of left lower leg with fat layer exposed; L97.222 Non-pressure chronic ulcer of left calf with fat layer exposed; L97.512 Non-pressure chronic ulcer of other part of right foot with fat layer exposed; R60.9 Edema, unspecified; E66.01 Morbid (severe) obesity due to excess calories; F17.210 Nicotine dependence, cigarettes, uncomplicated; Z85.46 Personal history of malignant neoplasm of prostate; Z68.41 Body mass index [BMI] 40.0-44.9, adult; Z79.01 Long term (current) use of anticoagulants; Y83.8 Other surgical procedures as the cause of abnormal reaction of the patient, or of later complication, without mention of misadventure at the time of the procedure ==

== ENCOUNTER → 2020-08-17 | Outpatient (CLI) | payer OTHER | LOC: HYPER 08:42 | PROVIDERS: ATTEND Emergency Medicine | DX: T81.89XD Other complications of procedures, not elsewhere classified, subsequent encounter (principal); I87.333 Chronic venous hypertension (idiopathic) with ulcer and inflammation of bilateral lower extremity; L97.312 Non-pressure chronic ulcer of right ankle with fat layer exposed; L97.812 Non-pressure chronic ulcer of other part of right lower leg with fat layer exposed; L97.822 Non-pressure chronic ulcer of other part of left lower leg with fat layer exposed; L97.222 Non-pressure chronic ulcer of left calf with fat layer exposed; L97.512 Non-pressure chronic ulcer of other part of right foot with fat layer exposed; L84 Corns and callosities; R60.9 Edema, unspecified; E66.01 Morbid (severe) obesity due to excess calories; F17.210 Nicotine dependence, cigarettes, uncomplicated; Z85.46 Personal history of malignant neoplasm of prostate; Z68.41 Body mass index [BMI] 40.0-44.9, adult; Z79.01 Long term (current) use of anticoagulants; Y83.8 Other surgical procedures as the cause of abnormal reaction of the patient, or of later complication, without mention of misadventure at the time of the procedure ==

== ENCOUNTER → 2020-09-21 | Outpatient (CLI) | payer OTHER | LOC: HYPER 09-20 12:14 | PROVIDERS: ATTEND Emergency Medicine | DX: T81.89XD Other complications of procedures, not elsewhere classified, subsequent encounter (principal); I87.333 Chronic venous hypertension (idiopathic) with ulcer and inflammation of bilateral lower extremity; L97.312 Non-pressure chronic ulcer of right ankle with fat layer exposed; L97.812 Non-pressure chronic ulcer of other part of right lower leg with fat layer exposed; L97.822 Non-pressure chronic ulcer of other part of left lower leg with fat layer exposed; L97.222 Non-pressure chronic ulcer of left calf with fat layer exposed; L97.512 Non-pressure chronic ulcer of other part of right foot with fat layer exposed; L84 Corns and callosities; R60.9 Edema, unspecified; E66.01 Morbid (severe) obesity due to excess calories; F17.210 Nicotine dependence, cigarettes, uncomplicated; Z85.46 Personal history of malignant neoplasm of prostate; Z68.41 Body mass index [BMI] 40.0-44.9, adult; Z79.01 Long term (current) use of anticoagulants; Y83.8 Other surgical procedures as the cause of abnormal reaction of the patient, or of later complication, without mention of misadventure at the time of the procedure ==

== ENCOUNTER → 2020-11-02 | Outpatient (CLI) | payer OTHER | LOC: HYPER 07:55 | PROVIDERS: ATTEND Emergency Medicine | DX: T81.89XD Other complications of procedures, not elsewhere classified, subsequent encounter (principal); I87.333 Chronic venous hypertension (idiopathic) with ulcer and inflammation of bilateral lower extremity; L97.312 Non-pressure chronic ulcer of right ankle with fat layer exposed; L97.812 Non-pressure chronic ulcer of other part of right lower leg with fat layer exposed; L97.822 Non-pressure chronic ulcer of other part of left lower leg with fat layer exposed; L97.222 Non-pressure chronic ulcer of left calf with fat layer exposed; L97.512 Non-pressure chronic ulcer of other part of right foot with fat layer exposed; L84 Corns and callosities; R60.9 Edema, unspecified; E66.01 Morbid (severe) obesity due to excess calories; F17.210 Nicotine dependence, cigarettes, uncomplicated; Z85.46 Personal history of malignant neoplasm of prostate; Z68.41 Body mass index [BMI] 40.0-44.9, adult; Z79.01 Long term (current) use of anticoagulants; Y83.8 Other surgical procedures as the cause of abnormal reaction of the patient, or of later complication, without mention of misadventure at the time of the procedure ==

== ENCOUNTER → 2020-11-30 | Outpatient (CLI) | payer OTHER | LOC: HYPER 08:10 | PROVIDERS: ATTEND Emergency Medicine | DX: T81.89XD Other complications of procedures, not elsewhere classified, subsequent encounter (principal); I87.333 Chronic venous hypertension (idiopathic) with ulcer and inflammation of bilateral lower extremity; L97.312 Non-pressure chronic ulcer of right ankle with fat layer exposed; L97.812 Non-pressure chronic ulcer of other part of right lower leg with fat layer exposed; L97.822 Non-pressure chronic ulcer of other part of left lower leg with fat layer exposed; L97.222 Non-pressure chronic ulcer of left calf with fat layer exposed; L97.512 Non-pressure chronic ulcer of other part of right foot with fat layer exposed; L84 Corns and callosities; R60.9 Edema, unspecified; E66.01 Morbid (severe) obesity due to excess calories; F17.210 Nicotine dependence, cigarettes, uncomplicated; Z85.46 Personal history of malignant neoplasm of prostate; Z68.41 Body mass index [BMI] 40.0-44.9, adult; Z79.01 Long term (current) use of anticoagulants; Y83.8 Other surgical procedures as the cause of abnormal reaction of the patient, or of later complication, without mention of misadventure at the time of the procedure ==

== ENCOUNTER → 2021-01-04 | Outpatient (CLI) | payer OTHER | LOC: HYPER 08:10 | PROVIDERS: ATTEND Emergency Medicine | DX: T81.89XD Other complications of procedures, not elsewhere classified, subsequent encounter (principal); I87.333 Chronic venous hypertension (idiopathic) with ulcer and inflammation of bilateral lower extremity; L97.312 Non-pressure chronic ulcer of right ankle with fat layer exposed; L97.812 Non-pressure chronic ulcer of other part of right lower leg with fat layer exposed; L97.822 Non-pressure chronic ulcer of other part of left lower leg with fat layer exposed; L97.222 Non-pressure chronic ulcer of left calf with fat layer exposed; L97.512 Non-pressure chronic ulcer of other part of right foot with fat layer exposed; L84 Corns and callosities; R60.9 Edema, unspecified; E66.01 Morbid (severe) obesity due to excess calories; F17.210 Nicotine dependence, cigarettes, uncomplicated; Z85.46 Personal history of malignant neoplasm of prostate; Z68.41 Body mass index [BMI] 40.0-44.9, adult; Z79.01 Long term (current) use of anticoagulants; Y83.8 Other surgical procedures as the cause of abnormal reaction of the patient, or of later complication, without mention of misadventure at the time of the procedure ==

== ENCOUNTER → 2021-01-04 | Outpatient (CLI) | payer OTHER | LOC: ULTRA 08:06 | PROVIDERS: ATTEND Surgery | DX: I82.432 Acute embolism and thrombosis of left popliteal vein (principal); I87.2 Venous insufficiency (chronic) (peripheral); M79.604 Pain in right leg; M79.605 Pain in left leg ==